=== PATIENT | male | born 1950 | race Caucasian/White ===

== ENCOUNTER 2016-12-07 11:09 | Emergency (ER) | payer MEDICARE, BC ==
[2016-12-07 11:28] VITALS: BP 158/98
--- NOTE | 2016-12-07 12:46 | ERNOTE ---
Upper Extremity HPI - Narrative Date of Service: 12/07/16 - General Extremities Pain Location: arm: right Time Seen by Provider: 12/07/16 12:35 Source: patient, family, RN notes reviewed Exam Limitations: no limitations - Immun/Allergies/Home Medications Immunizations: IMMUNIZATION HX Immunizations Up to Date Yes History of Influenza Vaccine Yes Hx Pneumococcal Vaccination Yes Allergies/Adverse Reactions: Allergies Allergy/AdvReac Type Severity Reaction Status Date / Time tetracycline [Tetracycline] Allergy Severe Unable to Verified 12/07/16 11:28 urinate Home Medications: HOME MEDICATIONS Asmanex 220 mcg PO DAILY 01/04/13 [Last Taken Unknown] Clonazepam 2 mg PO HS 01/04/13 [Last Taken Unknown] Doxazosin Mesylate [Cardura] 8 mg PO DAILY 01/04/13 [Last Taken Unknown] Hydrochlorothiazide [Hydrodiuril] 25 mg PO DAILY 01/04/13 [Last Taken Unknown] Irbesartan [Avapro] 300 mg PO DAILY 01/04/13 [Last Taken Unknown] Cholecalciferol (Vitamin D3) [Vitamin D3] 2,000 unit PO DAILY 10/04/16 [Last Taken Unknown] Omeprazole 40 mg PO DAILY #30 capsule. 10/05/16 [Last Taken Unknown] #103/Iron Fumarate/FA [ Tablet] 1 each PO DAILY #30 tablet 10/05/16 [Last Taken Unknown] Montelukast Sodium [Singulair] 10 mg PO DAILY 12/07/16 [Last Taken Unknown] - History of Present Illness Narrative: Nathan is a 66 year old male ambulatory to the ED for pain in his right arm that began last evening at 1900. The pain begins in his right lateral neck and radiates down the arm. He reports that he has been experiencing this intermittently for the past 2 weeks after staying in a hotel and sleeping on a different pillow. He has not taken anything for pain. He denies any other symptoms. 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 He reports that he became concerned that he might be having a stroke or some serious problem, so he came in to be evaluated. Method of Injury: Reports: no apparent injury Associated Symptoms: Reports: tingling. Denies: weakness, numbness distally, loss of power (rt arm) Prior Treament: Denies: similar symptoms before Review of Systems - Review of Systems Constitutional: Absent: recent illness, fever, chills, malaise EYE: Present: no symptoms reported ENT: Present: no symptoms reported Respiratory: Present: no symptoms reported Cardiology: Absent: chest pain, edema Gastrointestinal/Abdominal: Present: no symptoms reported Genitourinary: Present: no symptoms reported Musculoskeletal: Present: muscle pain, muscle stiffness - , neck pain. Absent : back pain, joint pain, joint swelling Neurological: Present: See HPI Endocrine: Present: no symptoms reported Hematologic/Lymphatic: Present: no symptoms reported Psych: Present: no symptoms reported - Patient's Past Medical History Patient History - Medical: Anxiety, Depression, Kidney stone, Other Patient History - Cardiac/Respiratory: Hypertension Patient History - Cancer: Skin Patient History - Surgical Procedures: Cholecystectomy, Total Knee Replacement, Other - Family History Mother Family History - Medical: Diabetes Type 2, Dementia Family History - Cardiac/Respiratory: Myocardial Infarction, TIA - Social History Living Situations: home Alcohol Use: rarely Drug Use: none Physical Exam - Physical Exam General Appearance: Present: wd/wn, alert, no apparent distress Eye Exam: Normal inspection: bilateral Neck: Present: full range of motion, tender lateral - right. Absent: lymphadenopathy (R), lymphadenopathy (L), tender posterior midline Respiratory: Present: no respiratory distress, normal breath sounds, no accessory muscle use, lungs clear Cardiovascular/Chest: Present: regular rate, rhythm, no murmur Extremity Exam: Present: normal inspection, non-tender, no edema, normal range of motion Neurological Exam: Present: alert, oriented, normal mood/affect, no motor/ sensory deficits Skin Exam: Present: normal color, warm/dry ED Progress - Vital Signs Patient's Vital Signs:: I have reviewed the patient's vital signs. Vital Signs: Vital Signs 12/07/16 11:23 Temperature 35.8 C L Pulse Rate 86 Respiratory 12 Rate Blood Pressure 158/98 O2 Sat by Pulse 96 Oximetry - Progress/Reassessment Chief Complaint: Upper Extremity Injury/Problem Progress:: Unchanged Progress Note-Subjective: Patient reassured that symptoms are not d/t a serious condition. Given his history of arthritis and the symptoms beginning after sleeping on a different pillow, his pain is likely musculoskeletal in nature. Discussed medication for the problem - states he will take Tylenol if needed. Departure Clinical Impression: Neck muscle strain Qualifiers: Encounter type: initial encounter Qualified Code(s): S16.1XXA - Strain of muscle, fascia and tendon at neck level, initial encounter - Departure Disposition: Home self-care Condition: Good Instructions: Cervical Sprain, [id number] Additional Instructions: Tylenol for pain Gently stretching exercises Heat to sore areas Referrals: Marcelo Becker MD [Primary Care Provider] -
== END 2016-12-07 12:59 | disposition home or self-care (01) ==
LOC: ER 11:09
DX: S16.1XXA Strain of muscle, fascia and tendon at neck level, initial encounter (principal); X50.1XXA Overexertion from prolonged static or awkward postures, initial encounter; Y93.84 Activity, sleeping; Y92.59 Other trade areas as the place of occurrence of the external cause; Z87.442 Personal history of urinary calculi; Z85.828 Personal history of other malignant neoplasm of skin; I10 Essential (primary) hypertension; F41.9 Anxiety disorder, unspecified

== ENCOUNTER 2017-03-07 20:28 | Emergency (ER) | payer MEDICARE, BC ==
[2017-03-07 20:44] VITALS: BP 162/95
[2017-03-07] MEDS ORDERED: NEOMY SULF/POLYMYX B SULF/HC 100 DROP BTL EACH EAR ONE (21:11)
--- NOTE | 2017-03-07 21:15 | ERNOTE ---
[facility] Date of Service: 03/07/17 Presenting Symptoms: other - Ear pain Time Seen by Provider: 03/07/17 20:55 Source: patient, family, RN notes reviewed Exam Limitations: no limitations - Immun/Allergies/Home Medications Immunizations: IMMUNIZATION HX Immunizations Up to Date Yes History of Influenza Vaccine Yes Hx Pneumococcal Vaccination Yes Allergies/Adverse Reactions: Allergies Allergy/AdvReac Type Severity Reaction Status Date / Time tetracycline [Tetracycline] Allergy Severe Unable to Verified 12/07/16 11:28 urinate Home Medications: HOME MEDICATIONS Asmanex 220 mcg PO DAILY 01/04/13 [Last Taken Unknown] Clonazepam 2 mg PO HS 01/04/13 [Last Taken Unknown] Doxazosin Mesylate [Cardura] 8 mg PO DAILY 01/04/13 [Last Taken Unknown] Hydrochlorothiazide [Hydrodiuril] 25 mg PO DAILY 01/04/13 [Last Taken Unknown] Irbesartan [Avapro] 300 mg PO DAILY 01/04/13 [Last Taken Unknown] Cholecalciferol (Vitamin D3) [Vitamin D3] 2,000 unit PO DAILY 10/04/16 [Last Taken Unknown] - History of Present Illness Narrative: 66 year old male ambulatory to the ED with his for bilateral ear pain that began a few days ago. The pain in the left ear became much worse today. He is having decreased hearing on the left, occasional dizziness and mild nausea. He reports having a similar problem a few years ago. ENT Location: Present: ear (L) Prearrival Treatment: Present: over the counter meds Associated Symptoms - ENT: Reports: change in hearing. Denies: fever, malaise, poor fluid intake, poor solid intake, cough, sore throat, nasal congestion/ drainage, facial pain/swelling, ear drainage, foreign body, trauma Prior Treament: Reports: similar symptoms before Review of Systems - Review of Systems Constitutional: Absent: fever, chills EYE: Present: no symptoms reported ENT: Present: ear pain. Absent: ear discharge, nose congestion, sore throat Respiratory: Present: no symptoms reported Cardiology: Present: no symptoms reported Gastrointestinal/Abdominal: Present: nausea. Absent: vomiting, abdominal pain Genitourinary: Present: no symptoms reported Musculoskeletal: Absent: muscle stiffness, neck pain Skin: Absent: rash, lesions, lumps Neurological: Present: dizziness/light-headedness. Absent: headache Endocrine: Present: no symptoms reported Hematologic/Lymphatic: Present: no symptoms reported Psych: Present: no symptoms reported - Patient's Past Medical History Patient History - Medical: Anemia, Anxiety, Depression, Kidney stone, Other Patient History - Cardiac/Respiratory: No pertinent hx, Hypertension Patient History - Cancer: Skin Patient History - Surgical Procedures: Cholecystectomy, Total Knee Replacement, Other Patient History - Other: None - Family History Mother Family History - Medical: Diabetes Type 2, Dementia Family History - Cardiac/Respiratory: Myocardial Infarction, TIA - Social History Living Situations: spouse Abuse History: No History of abuse Psych History: Hx of Anxiety, Hx of Depression Smoking Status: Never smoker Alcohol Use: rarely Drug Use: none - Immunizations Immunizations Up to Date: Yes Hx Pneumococcal Vaccination: Yes History of Influenza Vaccine: Yes Physical Exam - Physical Exam General Appearance: Present: wd/wn, alert, other - appears mildly uncomfortable Eye Exam: Normal inspection: bilateral Ears, Nose, Throat: Present: hearing decreased, normal pharynx, other - external auditory canal inflammation and tenderness bilaterally but much worse on left, unable to visualize left TM d/t edema with near closure of ear canal. Absent: abnormal TM (R), sinus pain/drainage Neck: Present: supple, lymphadenopathy (R), lymphadenopathy (L) - mildly tender Respiratory: Present: no respiratory distress, normal breath sounds, no accessory muscle use, lungs clear Cardiovascular/Chest: Present: regular rate, rhythm, no murmur Neurological Exam: Present: alert, oriented, normal mood/affect, other - gait somewhat unsteady d/t lightheadedness Skin Exam: Present: normal color, warm/dry ED Progress - Vital Signs Patient's Vital Signs:: I have reviewed the patient's vital signs. Vital Signs: Vital Signs 03/07/17 20:38 Temperature 37.0 C Pulse Rate 102 H Respiratory 16 Rate Blood Pressure 162/95 O2 Sat by Pulse 99 Oximetry - Progress/Reassessment Chief Complaint: Earache Progress:: Improved Plan - Plan Plan: Wick placed in left ear, cortisporin drops given in both ears, has f/u with PCP the day after tomorrow. Departure Clinical Impression: Otitis externa of both ears Qualifiers: Otitis externa type: unspecified type Chronicity: acute Qualified Code(s): H60.503 - Unspecified acute noninfective otitis externa, bilateral - Departure Disposition: Home Follow Up Needed Condition: Good Instructions: Otitis Externa, [id number] Additional Instructions: Use ear drops as directed - 4 drops in each ear 4 times a day for 10 days Recheck with your doctor in 2 days Referrals: Marcelo Becker MD [Primary Care Provider] -
[2017-03-07] MEDS ORDERED: NEOMY SULF/POLYMYX B SULF/HC 100 DROP BTL ONE (21:16)
--- OUTSIDE RECORDS SUMMARY | 2017-03-07 21:17 | XMS REPORT | Continuity of Care Document ---
:1950 Author Organization [facility] ([facility]) Address [address] [place] [address] Phone [phone] Care Team Providers Name Role Phone Unavailable Primary Care Provider Unavailable Source Comments This disclosure is being made pursuant to the Care Everywhere program, applicable federal and state laws, and may not contain all informaitonavailable regarding this patient.[facility] ([facility]) Active Allergies and Adverse Reactions Allergen Noted Date Severity Reactions Comments Tetracycline Urticaria (Hives) Current Medications Not on file Active Problems Not on file Social History Tobacco Use Types Packs/Day Years Used Date Never Assessed Last Filed Vital Signs Vital Sign Reading Time Taken Blood Pressure - - Pulse - - Temperature - - Respiratory Rate - - Height 1.72 m (5' 7.71") 09/18/2001 8:21 AM [employer] Weight 107.099 kg (236 lb 1.8 oz) 09/18/2001 8:21 AM FR[employer] Body Mass Index 36.2 09/18/2001 8:21 AM FR[employer]UFFER Oxygen Saturation - - Plan of Care Health Maintenance Due Date Last Done Comments HCV Screening 1950 Hepatitis B Vaccine (1 of 3 - Primary Series) 1950 Tdap Vaccine 1963 Lipid Disorder Screening 1970 Td Vaccine 1970 Colonoscopy 2002 Prostate Cancer Screening 2002 Zoster Vaccine 2012 Influenza Vaccine: Seasonal (#1) 06/13/2016 Results from Last 3 Months Not on file
== END 2017-03-07 21:30 | disposition home or self-care (01) ==
LOC: ER 20:28
DX: H60.503 Unspecified acute noninfective otitis externa, bilateral (principal)

== ENCOUNTER 2017-07-13 22:08 | Observation (INO) | payer MEDICARE, BC ==
[2017-07-13 23:19] LABS: Hematocrit 42.9 % (42.0-52.0); Hemoglobin 14.7 gm/dL (13.5-18.0); Mean Cell Volume 90.5 fl (78-100); Mean Corpuscular Hgb Conc 34.3 g/dl (32-36); Mean Platelet Volume 10.1 fl (6.0-9.5); Neutrophil # 6.1 K/mm3 (1.3-6.0); Neutrophil % 63.9 % (42-75.0); Platelet Count 188 K/mm3 (150-450); Red Blood Count 4.74 M/mm3 (4.7-6.0); Red Cell Distribution Width 12.9 % (11.5-14.0); White Blood Count 9.5 K/mm3 (4.0-10.5)
--- NOTE | 2017-07-13 23:19 | ERNOTE ---
Lower Extremity HPI - General Lower Extremities Pain: leg: right, thigh: right - pain and swelling Time Seen by Provider: 07/13/17 22:54 Source: patient, family Exam Limitations: no limitations - Immun/Allergies/Home Medications Immunizations: IMMUNIZATION HX Immunizations Up to Date Yes History of Influenza Vaccine Yes Hx Pneumococcal Vaccination Yes Allergies/Adverse Reactions: Allergies Allergy/AdvReac Type Severity Reaction Status Date / Time tetracycline [Tetracycline] Allergy Severe Unable to Verified 12/07/16 11:28 urinate Home Medications: HOME MEDICATIONS Asmanex 220 mcg PO DAILY 01/04/13 [Last Taken Unknown] Clonazepam 2 mg PO HS 01/04/13 [Last Taken Unknown] Doxazosin Mesylate [Cardura] 8 mg PO DAILY 01/04/13 [Last Taken Unknown] Hydrochlorothiazide [Hydrodiuril] 25 mg PO DAILY 01/04/13 [Last Taken Unknown] Irbesartan [Avapro] 300 mg PO DAILY 01/04/13 [Last Taken Unknown] Cholecalciferol (Vitamin D3) [Vitamin D3] 2,000 unit PO DAILY 10/04/16 [Last Taken Unknown] Cyclobenzaprine HCl 10 mg PO HS 07/13/17 [Last Taken Unknown] - History of Present Illness Narrative: Pt reports right thigh pain yesterday and lower leg swelling and pain today. also states that he has had difficulty walking, using a walker that he usually doesn't need. He also had some nausea and fever at home (subjective) and his is concerned that he may have [place] infection [place] Occurred: yesterday Location of Incident: home Method of Injury: Reports: unknown Loss of Consciousness: Reports: no loss of consciousness Associated Symptoms: Reports: headache - mild Other Injuries: Reports: none Review of Systems - Review of Systems Constitutional: Present: fever, chills EYE: Present: no symptoms reported ENT: Present: no symptoms reported Respiratory: Absent: shortness of breath Cardiology: Absent: chest pain Gastrointestinal/Abdominal: Present: nausea. Absent: vomiting, abdominal pain Genitourinary: Present: no symptoms reported Musculoskeletal: Present: See HPI Skin: Absent: rash, change in color Neurological: Present: weakness, tremors - increased over his usual tremors. Absent: numbness, tingling Endocrine: Present: no symptoms reported Hematologic/Lymphatic: Present: no symptoms reported Psych: Present: no symptoms reported - Patient's Past Medical History Patient History - Medical: Anxiety, Depression, Kidney stone Patient History - Cardiac/Respiratory: Hypertension Patient History - Cancer: No Hx of Cancer Patient History - Surgical Procedures: Cholecystectomy, Orthopedic Patient History - Other: None - Family History Mother Family History - Medical: Diabetes Type 2, Dementia Family History - Cardiac/Respiratory: Myocardial Infarction, TIA - Social History Living Situations: spouse Abuse History: No History of abuse Psych History: No pertinent hx, Hx of Depression Smoking Status: Former smoker Have you smoked in the past 12 months: No Do you dip or chew tobacco: No Alcohol Use: rarely Drug Use: none - Immunizations Immunizations Up to Date: Yes Hx Pneumococcal Vaccination: Yes History of Influenza Vaccine: Yes Physical Exam - Physical Exam General Appearance: Present: wd/wn, alert, no apparent distress Head Exam: Present: normal inspection, no evidence of injury Neck: Present: normal inspection, nontender Respiratory: Present: no respiratory distress, no accessory muscle use Peripheral Pulses: N=norm/S=strong/W=weak/B=bound/A=absent: Dorsalis-pedis (R): Normal, Dorsalis-pedis (L): Normal Back Exam: Present: normal inspection, no CVA tenderness Extremity Exam: Present: pedal edema, calf tenderness, extremity edema - right leg 1+ Neurological Exam: Present: alert, oriented, normal mood/affect, no motor/ sensory deficits Skin Exam: Present: normal color, warm/dry Lymphatic Exam: Present: no adenopathy ED Progress - Results and Orders Patient's Lab Results:: I have reviewed the patient's lab results. Results and Orders: Laboratory Tests 07/13/17 07/13/17 07/13/17 23:07 23:07 23:07 WBC 9.5 Hgb 14.7 Hct 42.9 Plt Count 188 D-Dimer 4.64 H Sodium 141 Potassium 3.7 Chloride 102 Carbon Dioxide 31.4 Anion Gap 11.3 BUN 18 Creatinine 1.16 Random Glucose 116 H Calcium 9.7 Total Bilirubin 1.1 AST 11 ALT 22 Alkaline Phosphatase 87 Total Protein 7.3 Albumin 3.3 L - Vital Signs Patient's Vital Signs:: I have reviewed the patient's vital signs. Vital Signs: Vital Signs 07/13/17 22:18 Temperature 36.8 C Pulse Rate 104 H Respiratory 18 Rate Blood Pressure 155/96 O2 Sat by Pulse 96 Oximetry - CT/Ultrasound CT/Ultrasound Narrative: U/S RLE venous doppler: obstructing thrombus from midportion of the superficial femoral vein through the poplitial region into the posterior tibial vein. - Progress/Reassessment Chief Complaint: Lower Extremity Pain/ Injury Progress Note-Subjective: 07/14/17 01:03 Spoke with Renetta NICOLEP hospitalist she agrees with lovenox and admission. Departure Clinical Impression: DVT, lower extremity Qualifiers: Affected thrombotic vein of extremity: femoral Chronicity: acute Laterality: right Qualified Code(s): I82.411 - Acute embolism and thrombosis of right femoral vein - Departure Disposition: [facility] Condition: Stable
[2017-07-13 23:35] LABS: Albumin * 3.3 gm/dl (3.4-5.0); Anion Gap 11.3 mmol/L (6.8-13.8); BUN/Creatinine Ratio 15.5 (9.0-21.6); Bilirubin, Total 1.1 mg/dL (0.0-1.1); Ca. Corrected For Albumin 9.9 mg/dL (8.4-10.2); Calcium * 9.7 mg/dL (7.9-10.9); Carbon Dioxide 31.4 mmol/L (24-32.6); Potassium 3.7 mmol/L (3.4-4.6); Total Protein 7.3 gm/dL (6.2-8.2)
[2017-07-14] MEDS ORDERED: ENOXAPARIN SODIUM 100 MG/ML SYRG SC ONE ×2 (00:53→00:55)
--- NOTE | 2017-07-14 04:24 | HP ---
Chief Complaint - Chief Complaint Date of Service: 07/14/17 Time of Service: 04:23 Chief Complaint: Right calf pain History of Present Illness: 67 years old male adm to the hospital from ER with reports of right calf pain. 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 Associated s/s nausea, headache and fever. He denies shortness of breath, palpitation and chest pain. Last night the pain in right leg was unbearable so he came to the ER. Venous duplex :positive for DVT right femoral vein, initiated on Lovenox and consider bridging with Coumadin.PMH significant for BPH, urethral stricture, anxiety, depression, hypertension, and cerebral palsy. Plan of care discussed with pt and they verbalized understanding and agrees. - Patient's Past Medical History Patient History - Medical: Anxiety, Depression, Kidney stone, Other - cerebral palsy Patient History - Cardiac/Respiratory: Hypertension Patient History - Cancer: No Hx of Cancer Patient History - Surgical Procedures: Cholecystectomy, Other - Rotator cuff repair Patient History - Other: None - Family History Mother Family History - Medical: Diabetes Type 2, Dementia Family History - Cardiac/Respiratory: Myocardial Infarction, TIA - Social History Living Situations: spouse Abuse History: No History of abuse Psych History: No pertinent hx, Hx of Depression Smoking Status: Former smoker Have you smoked in the past 12 months: No Do you dip or chew tobacco: No Alcohol Use: rarely Drug Use: none - Immunizations Immunizations Up to Date: Yes Hx Pneumococcal Vaccination: Yes History of Influenza Vaccine: Yes Review Of Systems (GEN) - Review of Systems Generalized/Overall Review: Present: No Symptoms Reported EENTM: Present: Other - slur from cerebral palsy Respiratory: Present: No Symptoms Reported Abdominal: Present: No Symptoms Reported Genitourinary: Present: No Symptoms Reported Musculoskeletal: Present: Other - calf pain Neurological: Present: No Symptoms Reported Skin: Present: No Symptoms Reported Endocrine: Present: No Symptoms Reported Immunizations: IMMUNIZATION HX Immunizations Up to Date Yes History of Influenza Vaccine Yes Hx Pneumococcal Vaccination Yes Allergies/Adverse Reactions: Allergies Allergy/AdvReac Type Severity Reaction Status Date / Time tetracycline [Tetracycline] Allergy Severe Unable to Verified 12/07/16 11:28 urinate Home Medications: HOME MEDICATIONS Asmanex 220 mcg PO DAILY 01/04/13 [Last Taken Unknown] Clonazepam 3 mg PO HS 01/04/13 [Last Taken Unknown] Doxazosin Mesylate [Cardura] 8 mg PO HS 01/04/13 [Last Taken Unknown] Hydrochlorothiazide [Hydrodiuril] 25 mg PO DAILY 01/04/13 [Last Taken Unknown] Irbesartan [Avapro] 300 mg PO DAILY 01/04/13 [Last Taken Unknown] Cholecalciferol (Vitamin D3) [Vitamin D3] 10,000 unit PO DAILY 10/04/16 [Last Taken Unknown] Cyclobenzaprine HCl 10 mg PO HS 07/13/17 [Last Taken Unknown] Exam - Exam Vital Signs: Vital Signs - Last Taken Temp 36.9 C 07/14/17 02:50 Pulse 103 H 07/14/17 03:31 Resp 22 H 07/14/17 02:50 BP 141/89 07/14/17 02:50 Pulse Ox 94 07/14/17 02:50 Constitutional: Present: Alert, Oriented x3, Cooperative, No distress, Middle aged ENT Exam: Present: normal ENT inspection Eye Exam: bilateral eye: normal inspection Neck: Present: full range of motion Back Exam: Present: normal inspection Breasts: Present: Exam deferred Respiratory: Present: chest non-tender, lungs clear, normal breath sounds Cardiovascular/Chest: Present: normal peripheral pulses, regular rate, rhythm, no chest tenderness Peripheral Pulses: dorsalis-pedis (R): 3+, dorsalis-pedis (L): 3+ Abdomen: Present: Normal bowel sounds, soft, nontender, nondistended, no rebound tenderness /Rectal: Present: Exam deferred Extremity: Present: no pedal edema, normal capillary refill, calf tenderness - + homans sign Skin Exam: Present: normal color, warm/dry, no cyanosis Lymphatic: Present: no adenopathy Neurologic: Present: oriented x 3 Appearance: Present: appropriate appearance Eye contact: Present: cooperative, good eye contact Thoughts: Present: normal thought pattern Diagnostic Studies: Laboratory Results WBC 9.5 K/mm3 (4.0-10.5) 07/13/17 23:07 RBC 4.74 M/mm3 (4.7-6.0) 07/13/17 23:07 Hgb 14.7 gm/dL (13.5-18.0) 07/13/17 23:07 Hct 42.9 % (42.0-52.0) 07/13/17 23:07 MCV 90.5 fl (78-100) 07/13/17 23:07 MCH 31.0 pg (27-31) 07/13/17 23:07 MCHC 34.3 g/dl (32-36) 07/13/17 23:07 RDW 12.9 % (11.5-14.0) 07/13/17 23:07 Plt Count 188 K/mm3 (150-450) 07/13/17 23:07 MPV 10.1 fl (6.0-9.5) H 07/13/17 23:07 Immature Gran % (Auto) 0.60 % (0.001-0.429) H 07/13/17 23:07 Immature Gran # (Auto) 0.06 K/mm3 (0.000-0.0310) H 07/13/17 23:07 Neutrophils % 63.9 % (42-75.0) 07/13/17 23:07 Lymphocytes % 17.0 % (20-51) L 07/13/17 23:07 Monocytes % 11.6 % (0.0-9) H 07/13/17 23:07 Eosinophils % 6.1 % (0.0-3.0) H 07/13/17 23:07 Basophils % 0.8 % (0.0-1.0) 07/13/17 23:07 Nucleated RBC % 0.0 k/mm3 (0-1) 07/13/17 23:07 Neutrophils # 6.1 K/mm3 (1.3-6.0) H 07/13/17 23:07 Lymphocytes # 1.6 k/mm3 (1.5-3.5) 07/13/17 23:07 Monocytes # 1.1 k/mm3 (0.0-1.0) H 07/13/17 23:07 Eosinophils # 0.6 k/mm3 (0.0-0.7) 07/13/17 23:07 Absolute Basophils 0.1 k/mm3 (0.0-0.1) 07/13/17 23:07 D-Dimer 4.64 mg/L (0.19-0.49) H 07/13/17 23:07 Sodium 141 mmol/L (132-142) 07/13/17 23:07 Plasma Sodium 141 mmol/L (130-142) 07/13/17 23:07 Potassium 3.7 mmol/L (3.4-4.6) 07/13/17 23:07 Chloride 102 mmol/L (97-106) 07/13/17 23:07 Carbon Dioxide 31.4 mmol/L (24-32.6) 07/13/17 23:07 Anion Gap 11.3 mmol/L (6.8-13.8) 07/13/17 23:07 BUN 18 mg/dL (6-23) 07/13/17 23:07 Creatinine 1.16 mg/dL (0.4-1.4) 07/13/17 23:07 Est GFR (Non-Af Amer) 67 mL/min (60-130) 07/13/17 23:07 BUN/Creatinine Ratio 15.5 (9.0-21.6) 07/13/17 23:07 Random Glucose 116 mg/dL (70-110) H 07/13/17 23:07 Calcium 9.7 mg/dL (7.9-10.9) 07/13/17 23:07 Calcium Adj for Albumin 9.9 mg/dL (8.4-10.2) 07/13/17 23:07 Total Bilirubin 1.1 mg/dL (0.0-1.1) 07/13/17 23:07 AST 11 U/L (0-48) 07/13/17 23:07 ALT 22 U/L (19-67) 07/13/17 23:07 Alkaline Phosphatase 87 U/L (50-170) 07/13/17 23:07 Total Protein 7.3 gm/dL (6.2-8.2) 07/13/17 23:07 Albumin 3.3 gm/dl (3.4-5.0) L 07/13/17 23:07 Assessment/Plan - Narrative Narrative: DVT- Right femoral vein On adm D- Dimer 4.64 Venous duplex + DVT femoral vein Lovenox 100mg x1 given in ER, continue Lovenox and bride with Coumadin Hypertension Monitor BP Q shift and PRN May resume home dose of medications. Anxiety- stable may resume home medications chronic Cerebral palsy- stable Code status: full GI ppx: pepcid Dvt ppx: On therapeutic dose Lovenox Time 35 minutes - Assessment/Plan (1) DVT, lower extremity Problem: Acute Qualifiers: Affected thrombotic vein of extremity: femoral Chronicity: acute Laterality: right Qualified Code(s): I82.411 - Acute embolism and thrombosis of right femoral vein (2) Hypertension Problem: Chronic Qualifiers: Hypertension type: essential hypertension Qualified Code(s): I10 - Essential (primary) hypertension (3) Cerebral palsy Problem: Chronic
[2017-07-14] MEDS ORDERED: ENOXAPARIN SODIUM 100 MG/ML SYRG SC SCH ×2 (05:45→13:00)
--- NOTE | 2017-07-14 06:57 | DS ---
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 admitted for occlusive DVT of right LE, with tx with lovenox at 1mg/kg dose q12 and also started on pradaxa 150mg po bid to lessen trips he would have to make to hospital for testing and because of difficulties he might have maintaining therapeutic ranges on coumadin. He states his calf pain was better this am, a few hrs after receiving his first lovenox injection and continued to deny CP/SOB. Procedures Performed: none Discharge Disposition: Home self care Disposition: Home self-care Condition: Stable Discharge Activity: Activity as tolerated Discharge Diet: General/regular food Referrals: Marcelo Becker MD [Primary Care Provider] - One Week Prescriptions (Any new or edited meds): Dabigatran Etexilate Mesylate [Pradaxa] 150 mg PO BID #60 capsule Complete Home Medications List: Complete Home Medication List: Asmanex 220 mcg PO DAILY 01/04/13 Clonazepam 3 mg PO HS 01/04/13 Doxazosin Mesylate [Cardura] 8 mg PO HS 01/04/13 Hydrochlorothiazide [Hydrodiuril] 25 mg PO DAILY 01/04/13 Irbesartan [Avapro] 300 mg PO DAILY 01/04/13 Cholecalciferol (Vitamin D3) [Vitamin D3] 10,000 unit PO DAILY 10/04/16 Cyclobenzaprine HCl 10 mg PO HS 07/13/17 Dabigatran Etexilate Mesylate [Pradaxa] 150 mg PO BID #60 capsule 07/14/17
[2017-07-14] MEDS ORDERED: BUDESONIDE 0.5 MG/2 ML VIAL.NEB IH SCH (07:00)
[2017-07-14] MEDS ORDERED: DABIGATRAN ETEXILATE MESYLATE 150 MG CAPSULE PO SCH (07:00)
[2017-07-14] MEDS ORDERED: ACETAMINOPHEN 500 MG TABLET PO PRN (07:05)
[2017-07-14] MEDS ORDERED: LOSARTAN POTASSIUM 50 MG TABLET PO SCH (09:00)
[2017-07-14] MEDS ORDERED: CHOLECALCIFEROL 5,000 UNIT TABLET PO SCH (09:00)
[2017-07-14] MEDS ORDERED: HYDROCHLOROTHIAZIDE 25 MG TABLET PO SCH (09:00)
[2017-07-14 11:54] VITALS: BP 137/96
[2017-07-14] MEDS ORDERED: clonazePAM 1 MG TABLET PO SCH (21:00)
[2017-07-14] MEDS ORDERED: DOXAZOSIN MESYLATE 2 MG TABLET PO SCH (21:00)
[2017-07-14] MEDS ORDERED: CYCLOBENZAPRINE HCL 10 MG TABLET PO SCH (21:00)
== END 2017-07-14 14:23 | disposition home or self-care (01) ==
LOC: ER 22:08 → MS 07-14 01:08 → INTOOBSV 07-14 01:08 → UNDOADMOB 07-14 01:08 → MS 07-14 06:49
PROVIDERS: ADMIT Nurse Practitioner; ATTEND Family Medicine
DX: I82.411 Acute embolism and thrombosis of right femoral vein (principal); I10 Essential (primary) hypertension; G80.9 Cerebral palsy, unspecified; F41.9 Anxiety disorder, unspecified; Z87.891 Personal history of nicotine dependence; N40.0 Benign prostatic hyperplasia without lower urinary tract symptoms
CPT/HCPCS: 36415; 80053; 85025; 85379; 93971; 94640; 96372; 99285; G0378

== ENCOUNTER 2017-07-14 21:57 | Emergency (ER) | payer MEDICARE, BC ==
[2017-07-14 22:04] VITALS: BP 154/95
--- NOTE | 2017-07-14 22:27 | ERNOTE ---
Lower Extremity HPI - Narrative Date of Service: 07/14/17 - General Time Seen by Provider: 07/14/17 22:08 Source: patient - Immun/Allergies/Home Medications Immunizations: IMMUNIZATION HX Immunizations Up to Date Yes History of Influenza Vaccine Yes Hx Pneumococcal Vaccination No Allergies/Adverse Reactions: Allergies Allergy/AdvReac Type Severity Reaction Status Date / Time tetracycline [Tetracycline] Allergy Severe Unable to Verified 12/07/16 11:28 urinate Home Medications: HOME MEDICATIONS Asmanex 220 mcg PO DAILY 01/04/13 [Last Taken Unknown] Clonazepam 3 mg PO HS 01/04/13 [Last Taken Unknown] Doxazosin Mesylate [Cardura] 8 mg PO HS 01/04/13 [Last Taken Unknown] Hydrochlorothiazide [Hydrodiuril] 25 mg PO DAILY 01/04/13 [Last Taken Unknown] Irbesartan [Avapro] 300 mg PO DAILY 01/04/13 [Last Taken Unknown] Cholecalciferol (Vitamin D3) [Vitamin D3] 10,000 unit PO DAILY 10/04/16 [Last Taken Unknown] Cyclobenzaprine HCl 10 mg PO HS 07/13/17 [Last Taken Unknown] Dabigatran Etexilate Mesylate [Pradaxa] 150 mg PO BID #60 capsule 07/14/17 [ Last Taken Unknown] Enoxaparin Sodium [Lovenox] 100 mg SC BID #10 disp.syrin 07/14/17 [Last Taken Unknown] - History of Present Illness Narrative: This is a 67-year-old gentleman who comes to the emergency department complaining of a mild catch in his right side. The patient is very concerned because he was diagnosed with a blood clot in his right leg earlier today. The patient was given a list of instructions and things to watch out for, and thought that the doctor said if he develops pain in his side that may indicate the blood clot is moving. The patient has had no chest pain and no shortness of breath. His leg which was significantly swollen previously has gotten much better. The patient says that he has had the pain in his side for just a couple of hours. He's had no nausea or vomiting. He has had no other complaints. He is not feeling dizzy or lightheaded. His blood pressures actually been a little higher than usual. His sons had lots of questions about why his blood pressure was elevated if he is on a blood thinner. Review of Systems - Review of Systems Constitutional: Present: no symptoms reported EYE: Present: no symptoms reported ENT: Present: no symptoms reported Respiratory: Present: no symptoms reported Cardiology: Present: no symptoms reported Gastrointestinal/Abdominal: Present: no symptoms reported Genitourinary: Present: no symptoms reported Musculoskeletal: Present: other - pain on the right flank superficially. Skin: Present: no symptoms reported Neurological: Present: no symptoms reported Endocrine: Present: no symptoms reported Hematologic/Lymphatic: Present: no symptoms reported Psych: Present: no symptoms reported All Other Systems: All systems neg except as marked - Patient's Past Medical History Patient History - Medical: Anxiety, Depression, Kidney stone, Other Patient History - Cardiac/Respiratory: Hypertension Patient History - Cancer: No Hx of Cancer Patient History - Surgical Procedures: Cholecystectomy, Other Patient History - Other: None - Family History Mother Family History - Medical: Diabetes Type 2, Dementia Family History - Cardiac/Respiratory: Myocardial Infarction, TIA - Social History Living Situations: home Abuse History: No History of abuse Psych History: Hx of Anxiety, Hx of Depression Smoking Status: Former smoker Have you smoked in the past 12 months: No Do you dip or chew tobacco: No Alcohol Use: rarely Drug Use: none - Immunizations Immunizations Up to Date: Yes Hx Pneumococcal Vaccination: No History of Influenza Vaccine: Yes Physical Exam - Physical Exam General Appearance: Present: wd/wn, alert, no apparent distress Head Exam: Present: normal inspection, no evidence of injury Ears, Nose, Throat: Present: normal ENT inspection, normal pharynx Neck: Present: normal inspection, nontender Respiratory: Present: no respiratory distress, normal breath sounds, no accessory muscle use, chest nontender, lungs clear Cardiovascular/Chest: Present: regular rate, rhythm, no murmur, normal peripheral pulses Gastrointestinal/Abdominal: Present: normal bowel sounds, nontender, nondistended, soft, other - patient has some very mild discomfort with palpation in the left lower quadrant and right lower quadrant more in the flanks. These actually corresponded where the patient received shots earlier today. Back Exam: Present: normal inspection, normal range of motion, no CVA tenderness , no vertebral tenderness Extremity Exam: Present: normal inspection, non-tender, normal range of motion, no edema Neurological Exam: Present: alert, oriented, normal mood/affect, no motor/ sensory deficits Skin Exam: Present: normal color, warm/dry Lymphatic Exam: Present: no adenopathy ED Progress - Vital Signs Patient's Vital Signs:: I have reviewed the patient's vital signs. Vital Signs: Vital Signs 07/14/17 21:59 Temperature 37.1 C Pulse Rate 98 Respiratory 18 Rate Blood Pressure 154/95 O2 Sat by Pulse 94 Oximetry - Progress/Reassessment Chief Complaint: Lower Extremity Pain/ Injury Plan - Plan Plan: This is a 67-year-old gentleman who is concerned that the blood clot he had in his leg may have moved. His symptoms have actually improved. The leg swelling is much better. He is already being treated with anticoagulants. As we have gone through his assessment here in the department, his remembered that he received a shot near the area where is having the pain in his side. He also has a small amount of pain in the other side where he also received a shot earlier. The patient is very happy that we have answered his questions about blood pressure and being on blood thinners. I do not believe that this gentleman would benefit from any further testing. Certainly one would not expect a blood clot to move into his flank and cause pain in his flank. He has no nausea vomiting diarrhea blood in his stool dizziness hypotension or anything to make me think of a GI bleed. He does not have significant abdominal discomfort to make me think of a hematoma. He only has tenderness and a very small area of the flank. This is not on the entire flank such as would be expected with a retroperitoneal hematoma. The patient is comfortable going home now that he has been reassured that his blood clot has not moved. Departure Clinical Impression: Side pain - Departure Disposition: Home self-care Condition: Stable Additional Instructions: As we discussed, the primary symptoms to be concerned about with a blood clot in her leg are symptoms of chest pain and shortness of breath. If either of these occur it may indicate that a blood clot has broken off and that he should return immediately to the emergency department. Her leg is gotten much better over the last 24 hours. I do not think that additional testing is indicated at this time. Next Continue to engage in the treatments that you have been. Continue taking the medicines like you have been. Call your family doctor and set up a follow-up appointment. If you have questions feel free to call the emergency department. We can answer general questions but cannot tell you if you need to come into the emergency room or not. Certainly could develop new worrisome symptoms or return to the emergency department. Referrals: Marcelo Becker MD [Primary Care Provider] -
== END 2017-07-14 22:28 | disposition home or self-care (01) ==
LOC: ER 21:57
DX: R10.9 Unspecified abdominal pain (principal); Z87.442 Personal history of urinary calculi; Z87.891 Personal history of nicotine dependence; I10 Essential (primary) hypertension; Z79.01 Long term (current) use of anticoagulants; F41.9 Anxiety disorder, unspecified

== ENCOUNTER 2019-09-17 17:14 | Observation (INO) ==
[2019-09-17 18:41] LABS: Mean Cell Volume 98.7 fl (78-100); Mean Corpuscular Hemoglobin 32.9 pg (27-31); Mean Corpuscular Hgb Conc 33.3 g/dl (32-36); Mean Platelet Volume 8.6 fl (8-11.3); Platelet Count 135 K/mm3 (150-450); Red Blood Count 3.95 M/mm3 (4.7-6.0); Red Cell Distribution Width 14.9 % (11.5-14.0); White Blood Count 10.6 K/mm3 (4.0-10.5)
[2019-09-17 18:44] LABS: Total Cells Counted 100
[2019-09-17 18:51] LABS: ALT 25 U/L (19-67); AST 14 U/L (0-48); Albumin * 2.6 gm/dl (3.4-5.0); Alkaline Phosphatase * 44 U/L (50-170); Anion Gap 7.2 mmol/L (6.8-13.8); BUN/Creatinine Ratio 23.2 (9.0-21.6); Bilirubin, Total 0.4 mg/dL (0.0-1.1); Blood Urea Nitrogen 52 mg/dL (6-23); Ca. Corrected For Albumin 9.7 mg/dL (8.4-10.2); Calcium * 8.9 mg/dL (7.9-10.9); Chloride 102 mmol/L (97-106); Glucose * 117 mg/dL (70-110); Potassium 4.2 mmol/L (3.4-4.6); Sodium 136 mmol/L (132-142); Total Protein 5.4 gm/dL (6.2-8.2)
[2019-09-17 18:55] LABS: Lymphocyte 15 % (20-51); Monocyte 10 % (0-9); Neutrophil 75 % (42-75); Platelet Estimate Normal (NORMAL); RBC Morphology Normal (NORMAL)
--- NOTE | 2019-09-17 18:58 | ERNOTE ---
<Ousmane Montgomeryen - Last Filed: 09/17/19 19:30> Medical Problem HPI - Narrative Date of Service: 09/17/19 - General Chief Complaint: General Assessment Time Seen by Provider: 09/17/19 18:16 Source: patient, family Exam Limitations: no limitations - Immun/Allergies/Home Medications Immunizations: IMMUNIZATION HX Immunizations Up to Date Yes History of Influenza Vaccine No Hx Pneumococcal Vaccination Yes Allergies/Adverse Reactions: Allergies tetracycline [Tetracycline] Allergy (Severe, Verified 09/17/19 17:25) Unable to urinate sucralfate [From Carafate] Adverse Reaction (Verified 09/17/19 17:25) stomach troubles Home Medications: HOME MEDICATIONS Cholecalciferol (Vitamin D3) [Vitamin D3] 10,000 unit PO DAILY 10/04/16 [Last Taken Unknown] Albuterol Sulfate [Ventolin HFA] 1 puff IH Q4H 11/29/17 [Last Taken Unknown] acetaminophen 325 mg tablet 650 mg PO Q6H PRN tab 05/21/18 [Last Taken Unknown] albuterol sulfate 1.25 mg IH QID PRN 05/21/18 [Last Taken Unknown] irbesartan 300 mg tablet 300 mg PO DAILY #90 tab 12/11/18 [Last Taken Unknown] doxazosin 8 mg tablet 8 mg PO HS #90 tab 03/11/19 [Last Taken Unknown] clonazepam 1 mg tablet 1 mg PO Q8H #90 tab 06/24/19 [Last Taken Unknown] apixaban 5 mg tablet See Rx Instructions .ROUTE .COMPLEX #60 tab 07/04/19 [Last Taken Unknown] gabapentin 600 mg tablet 600 mg PO .COMPLEX #120 tab 07/04/19 [Last Taken Unknown] dexamethasone 6 mg tablet 6 mg PO BID #60 tab 07/24/19 [Last Taken Unknown] pantoprazole 40 mg tablet,delayed release See Rx Instructions .ROUTE .COMPLEX #90 tablet 08/06/19 [Last Taken Unknown] hydrochlorothiazide 25 mg tablet 25 mg PO DAILY #30 tab 08/15/19 [Last Taken Unknown] - History of Present History Narrative: Patient presents to the ED after being told to present for evaluation by [facility] and PCP. He was seen at [place] recently and Dx with MS. He had area right arm and left leg that was thought to be possible MRSA. Given ABx and those finished but no improvement. Pictures were sent to PCP of this and he was sent tot he ED for labs and US. No fever. Timing: constant, other - not improved with ABx. Severity: moderate Modifying Factors - (Improves): Present: other - nothing Modifying Factors - (Worsens): Present: other - nothing Review of Systems - Review of Systems Constitutional: Absent: fever EYE: Present: no symptoms reported ENT: Absent: sore throat Respiratory: Absent: shortness of breath Cardiology: Absent: chest pain Gastrointestinal/Abdominal: Absent: abdominal pain Genitourinary: Present: other - recent UTI diagnosed Musculoskeletal: Present: See HPI Skin: Present: See HPI Neurological: Present: other - chronic weakness, no acute weakness All Other Systems: All systems neg except as marked Medical History (Last Reviewed 09/17/19 @ 18:56 by Jimi Montgomery MD) Low back pain radiating down leg (Chronic) Low back pain potentially associated with spinal stenosis (Chronic) DVT, lower extremity (Chronic) Allergic rhinitis Onset Date: ~09/04/14 Asthma Onset Date: Unknown Balance disorder Onset Date: ~05/26/16 Bilateral hand numbness Onset Date: ~11/21/15 Carpal tunnel syndrome Onset Date: ~11/28/11 Cerebral palsy Onset Date: Unknown Chronic renal failure Onset Date: ~08/08/13 Colitis, ulcerative Onset Date: Unknown DVT (deep venous thrombosis) Onset Date: ~07/12/17 02/12/17, 07/12/17, 08/02/17 Depression Onset Date: Unknown Erectile dysfunction Onset Date: ~08/27/12 Hepatitis Onset Date: Unknown Hiatal hernia Onset Date: Unknown Hypertension Onset Date: ~08/08/13 Insomnia Onset Date: Unknown Iron deficiency anemia Onset Date: ~12/16/16 Kidney stone Onset Date: Unknown Left foot pain Onset Date: ~09/06/15 Low back pain Onset Date: ~07/22/15 Pinworms Onset Date: ~11/09/15 Shoulder dislocation Onset Date: ~02/04/13 Spinal stenosis Onset Date: Unknown Surgical History: Surgical History (Last Reviewed 09/17/19 @ 18:56 by Jimi Montgomery MD) Fractured nose Onset Date: ~1976 repaired H/O repair of rotator cuff Onset Date: ~1999 left History of cystoscopy Onset Date: ~2014 2014, 02/02/17 History of lithotripsy Onset Date: ~07/29/15 Hx of cholecystectomy Onset Date: ~03/11/08 Hx of dilation of urethra Onset Date: Unknown Hx of knee surgery Onset Date: ~1979 left Lipoma of back Onset Date: Unknown removal S/P epidural steroid injection Onset Date: ~03/21/12 Family History: Family History (Last Reviewed 09/17/19 @ 18:56 by Jimi Montgomery MD) Brother Heart disease Brother Cancer bladder Celiac disease Heart disease Diabetes Kidney failure Mother Diabetes Depression Heart disease Hypertension CVA (cerebral vascular accident) Father Heart disease Myocardial infarction Parkinson disease Social History: (Last Reviewed 09/17/19 @ 18:56 by Jimi Montgomery MD) Social History: Marital status: current occupational status: retired Service: No Tobacco: Smoking Status: Former smoker Alcohol: alcohol intake: current Substance Use: substance use type: does not use Dietary Habits: caffeine: Yes Physical Exam - Physical Exam General Appearance: Present: alert, no apparent distress Head Exam: Present: normal inspection, no evidence of injury Eye Exam: Normal inspection: bilateral, PERRL: bilateral Ears, Nose, Throat: Present: normal ENT inspection Neck: Present: normal inspection Respiratory: Present: no respiratory distress, normal breath sounds, no accessory muscle use, lungs clear Cardiovascular/Chest: Present: regular rate, rhythm, normal peripheral pulses Gastrointestinal/Abdominal: Present: normal bowel sounds, nontender, soft Back Exam: Absent: CVA tenderness (R), CVA tenderness (L) Extremity Exam: Present: other - There are raised red areas right forearm of uncertain etiology. No abscess noted. Left posterio upper leg with redness= also but no lumps here. Neurological Exam: Present: other - no acute unilateral focal weakness, chronic neurologic issues noted Skin Exam: Present: normal color, warm/dry Progress - Results and Orders Patient's Lab Results:: I have reviewed the patient's lab results. - Vital Signs Patient's Vital Signs:: I have reviewed the patient's vital signs. Vital Signs: Vital Signs 09/17/19 17:21 Temperature 36.3 C Pulse Rate 120 H Respiratory Rate 22 H Blood Pressure 89/54 L O2 Sat by Pulse Oximetry 95 - Progress/Reassessment Chief Complaint: General Assessment - Transfer of Care Physician Sign Out: Jimi Montgomery Receiving Physician: Adiel Hudson Pending Results: CT/MRI results, Labs Departure Clinical Impression: Abscess Sepsis Qualifiers: Sepsis type: sepsis due to unspecified organism Sepsis acute organ dysfunction status: with acute organ dysfunction Severe sepsis acute organ dysfunction type: unspecified Severe sepsis shock status: without septic shock Qualified Code(s): A41.9 - Sepsis, unspecified organism - Departure Disposition: Still a patient Condition: Stable <Adiel Hudson - Last Filed: 09/18/19 01:20> Medical Problem HPI - Immun/Allergies/Home Medications Immunizations: IMMUNIZATION HX Immunizations Up to Date Yes History of Influenza Vaccine No Hx Pneumococcal Vaccination Yes Medical History (Last Reviewed 09/17/19 @ 18:56 by Jimi Montgomery MD) Low back pain radiating down leg (Chronic) Low back pain potentially associated with spinal stenosis (Chronic) DVT, lower extremity (Chronic) Allergic rhinitis Onset Date: ~09/04/14 Asthma Onset Date: Unknown Balance disorder Onset Date: ~05/26/16 Bilateral hand numbness Onset Date: ~11/21/15 Carpal tunnel syndrome Onset Date: ~11/28/11 Cerebral palsy Onset Date: Unknown Chronic renal failure Onset Date: ~08/08/13 Colitis, ulcerative Onset Date: Unknown DVT (deep venous thrombosis) Onset Date: ~07/12/17 02/12/17, 07/12/17, 08/02/17 Depression Onset Date: Unknown Erectile dysfunction Onset Date: ~08/27/12 Hepatitis Onset Date: Unknown Hiatal hernia Onset Date: Unknown Hypertension Onset Date: ~08/08/13 Insomnia Onset Date: Unknown Iron deficiency anemia Onset Date: ~12/16/16 Kidney stone Onset Date: Unknown Left foot pain Onset Date: ~09/06/15 Low back pain Onset Date: ~07/22/15 Pinworms Onset Date: ~11/09/15 Shoulder dislocation Onset Date: ~02/04/13 Spinal stenosis Onset Date: Unknown Surgical History: Surgical History (Last Reviewed 09/17/19 @ 18:56 by Jimi Montgomery MD) Fractured nose Onset Date: ~1976 repaired H/O repair of rotator cuff Onset Date: ~1999 left History of cystoscopy Onset Date: ~2014 2014, 02/02/17 History of lithotripsy Onset Date: ~07/29/15 Hx of cholecystectomy Onset Date: ~03/11/08 Hx of dilation of urethra Onset Date: Unknown Hx of knee surgery Onset Date: ~1979 left Lipoma of back Onset Date: Unknown removal S/P epidural steroid injection Onset Date: ~03/21/12 Family History: Family History (Last Reviewed 09/17/19 @ 18:56 by Jimi Montgomery MD) Brother Heart disease Brother Cancer bladder Celiac disease Heart disease Diabetes Kidney failure Mother Diabetes Depression Heart disease Hypertension CVA (cerebral vascular accident) Father Heart disease Myocardial infarction Parkinson disease Social History: (Last Reviewed 09/17/19 @ 18:56 by Jimi Montgomery MD) Social History: Marital status: current occupational status: retired Service: No Tobacco: Smoking Status: Former smoker Alcohol: alcohol intake: current Substance Use: substance use type: does not use Dietary Habits: caffeine: Yes Physical Exam - Physical Exam General Appearance: Present: alert, no apparent distress Respiratory: Present: no respiratory distress, no accessory muscle use Extremity Exam: Present: other - Right forearm multiple erythematous nodules noted. Most distal is somewhat fluctuant. Left distal thigh showed no fluctuant areas or specific place that would be amenable to aspiration or I&D. Progress - Results and Orders Patient's Lab Results:: I have reviewed the patient's lab results. - Vital Signs Patient's Vital Signs:: I have reviewed the patient's vital signs. Vital Signs: Vital Signs 09/17/19 17:21 09/17/19 18:56 09/17/19 19:54 Temperature 36.3 C Pulse Rate 120 H 117 H 109 H Respiratory Rate 22 H 22 H 20 Blood Pressure 89/54 L 113/57 120/73 O2 Sat by Pulse Oximetry 95 94 98 - CT/Ultrasound CT/Ultrasound Narrative: Ultrasound right upper extremity. neg for DVT 4.7 X 2.2 X 1.4 cm complex fluid collection in the right forearm consistent with abscess Ultrasound left lower extremity: Negative for DVT. 4.1 x 1.5 x 0.7 cm distal thigh fluid collection concerning for abscess - Progress/Reassessment Progress:: Improved Progress Note-Subjective: Assumed care from Dr. Montgomery at 2000 hrs. patient remained stable and awaiting his ultrasound. 09/17/19 22:32 Spoke with the patient about I&D for the arm abscess but the leg abscess does not seem palpable and would be higher risk for complications. Second lactic acid is 1.8. 09/17/19 23:[address] Pereira and he agrees with IV antibiotics and observation admission. 09/18/19 00:26 Started vancomycin 1 gm then to be dosed by pharmacy and cefepime 2gm q 24 adjusting for decreased renal clearance. 09/18/19 00:32 I did not realize the patient did not get a full sepsis bolus but only received 1000 ml. remaining sepsis bolus ordered 2200 ml to run at 126 ml / hr Due to the fact the patient did have one initial low blood pressure which is somewhat questionable due to the fact that there is no treatment given and the patient's blood pressure came up on its own at next measurement but patient had not urinated by the time he left the ER and fluids were ordered. Adiel Hudson DO Procedures Right Arm Anesthesia: 1% Lidocaine I & D Prep: betadine prep Blade Size: 19-gauge needle Findings and Actions: purulent drainage moderate, probed/breakup loculation, cultures obtained Estimated blood loss (ml): 10 - Needle aspiration was attempted due to patient being on anticoagulants. No fluid was able to be aspirated but purulent drainage was milked out of the wound after aspiration attempt Complications: Pt jasmyn procedure well - Adiel Hudson DO
[2019-09-17] MEDS ORDERED: NORMAL SALINE 1,000 ML IV ONE (19:57)
[2019-09-17] MEDS ORDERED: LIDOCAINE HCL 50 ML VIAL IJ ONE (23:05)
[2019-09-18] MEDS ORDERED: VANCOMYCIN HCL 1 GM in DEXTROSE 5 % IN WATER 250 ML IV ONE ×2 (00:17)
[2019-09-18] MEDS: NORMAL SALINE 1,000 ML IV PRN ×3 (00:34→16:34)
[2019-09-18 01:24] LABS: Urine Bilirubin Negative (NEGATIVE); Urine Blood Negative /ul (NEGATIVE); Urine Ketone Negative (NEGATIVE); Urine Nitrite Negative (NEGATIVE); Urine Protein Negative (NEGATIVE); Urine Specific Gravity 1.025 SP.GR. (1.005-1.030); Urine Urobilinogen Normal (NORMAL); Urine pH 5.5 pH (5.0-7.0)
[2019-09-18 01:31] LABS: Urine Appearance Clear (CLEAR); Urine Bacteria None Seen; Urine Color Yellow; Urine RBC None Seen /hpf (0-5); Urine WBC None Seen /hpf (0-5)
[2019-09-18] MEDS ORDERED: ACETAMINOPHEN 500 MG TABLET PO PRN (02:02)
[2019-09-18] MEDS: clonazePAM 1 MG TABLET PO SCH ×2 (02:31→21:12)
[2019-09-18] MEDS: APIXABAN 5 MG TABLET PO SCH ×2 (02:31→08:03)
[2019-09-18] MEDS: diphenhydrAMINE HCL 50 MG CAPSULE PO PRN ×2 (02:32→21:12)
[2019-09-18] MEDS: DOXAZOSIN MESYLATE 2 MG TABLET PO SCH ×2 (02:33→20:58)
--- NOTE | 2019-09-18 06:43 | HP ---
Chief Complaint - Chief Complaint Date of Service: 09/18/19 Time of Service: 06:36 Chief Complaint: R arm cellulitis worsening, despite outpt. oral abx. History of Present Illness: Pt is 69yo Male with longstanding CP, pain from spinal stenosis and recent dx of MS, has been on high dose steroids for the last 2 months due to suspicion for MS and due to relief of his muscle spasms and back pain, started with a cellulitis of his RUE and was placed on Bactrim BID, Cefadroxil 500mg po bid and levaquin 750mg po daily (partly due to UTI) by [facility] over 10 days ago. Despite this treatment his cellulitis not only didn't improve, it worsened with "bumps" forming on his anterior R forearm, with increasing redness and pain that was becoming intolerable. Pt. and deny any mental status changes, but did have increased fatigue and weakness and malaise. A picture of his arm was sent to me last night at home and I instructed them to go to ER due to his multiple medical issues, failure on a good regimen of oral abx and due to his comorbidities that put him at high risk for becoming septic rapidly. (Pt. denied fevers or chills and actually stated he felt fairly well the am prior to coming to the ER, but sx's progressed throughout the day.) In the ER he was found to have a BP of 89/54, HR of 120 and RR 22. His WBC was 10.8, but had a left shift and a drop in his platelets to 135, lactic acid of 2.1, Cr of 2.24 (normal by hx for him is 1.4 or less) and a GFR of 31. He was found to have abscesses on his R forearm and an erythematous area behind his L knee. The most distal abscess was aspirated with an 18 gauge needle with purlulent material expressed from it. The other areas did not appear to be amenable to drainage. Pt. received IVF in the ER, was started on IV vancomycin for presumed MRSA and admitted for further evaluation and treatment. Medical History (Last Reviewed 09/18/19 @ 01:35 by Rochelle Qureshi RN) Low back pain radiating down leg (Chronic) Low back pain potentially associated with spinal stenosis (Chronic) DVT, lower extremity (Chronic) Allergic rhinitis Onset Date: ~09/04/14 Asthma Onset Date: Unknown Balance disorder Onset Date: ~05/26/16 Bilateral hand numbness Onset Date: ~11/21/15 Carpal tunnel syndrome Onset Date: ~11/28/11 Cerebral palsy Onset Date: Unknown Chronic renal failure Onset Date: ~08/08/13 Colitis, ulcerative Onset Date: Unknown DVT (deep venous thrombosis) Onset Date: ~07/12/17 02/12/17, 07/12/17, 08/02/17 Depression Onset Date: Unknown Erectile dysfunction Onset Date: ~08/27/12 Hepatitis Onset Date: Unknown Hiatal hernia Onset Date: Unknown Hypertension Onset Date: ~08/08/13 Insomnia Onset Date: Unknown Iron deficiency anemia Onset Date: ~12/16/16 Kidney stone Onset Date: Unknown Left foot pain Onset Date: ~09/06/15 Low back pain Onset Date: ~07/22/15 Pinworms Onset Date: ~11/09/15 Shoulder dislocation Onset Date: ~02/04/13 Spinal stenosis Onset Date: Unknown Surgical History: Surgical History (Last Reviewed 09/18/19 @ 01:36 by Rochelle Qureshi RN) Fractured nose Onset Date: ~1976 repaired H/O repair of rotator cuff Onset Date: ~1999 left History of cystoscopy Onset Date: ~2014 2014, 02/02/17 History of lithotripsy Onset Date: ~07/29/15 Hx of cholecystectomy Onset Date: ~03/11/08 Hx of dilation of urethra Onset Date: Unknown Hx of knee surgery Onset Date: ~1979 left Lipoma of back Onset Date: Unknown removal S/P epidural steroid injection Onset Date: ~03/21/12 Family History: Family History (Last Reviewed 09/18/19 @ 01:36 by Rochelle Qureshi RN) Brother Heart disease Brother Cancer bladder Celiac disease Heart disease Diabetes Kidney failure Mother Diabetes Depression Heart disease Hypertension CVA (cerebral vascular accident) Father Heart disease Myocardial infarction Parkinson disease Social History: (Last Reviewed 09/18/19 @ 01:36 by Rochelle Qureshi RN) Social History: Marital status: current occupational status: retired Service: No Tobacco: Smoking Status: Former smoker Alcohol: alcohol intake: current Substance Use: substance use type: does not use Dietary Habits: caffeine: Yes Review Of Systems (GEN) - Review of Systems Generalized/Overall Review: Present: Weakness, Malaise, Fatigue. Absent: Chills, Fever EENTM: Present: Blurred Vision. Absent: Double Vision Respiratory: Present: No Symptoms Reported Cardiac: Present: No Symptoms Reported Abdominal: Present: No Symptoms Reported Genitourinary: Present: No Symptoms Reported Musculoskeletal: Present: Joint Pain, Back Pain Neurological: Present: Weakness Skin: Present: Lesions, Lumps, Change in Color Endocrine: Present: No Symptoms Reported Immunizations: IMMUNIZATION HX Immunizations Up to Date Yes History of Influenza Vaccine No Hx Pneumococcal Vaccination Yes Allergies/Adverse Reactions: Allergies Allergy/AdvReac Type Severity Reaction Status Date / Time tetracycline [Tetracycline] Allergy Severe Unable to Verified 09/17/19 17:25 urinate sucralfate [From Carafate] AdvReac stomach Verified 09/17/19 17:25 troubles Home Medications: HOME MEDICATIONS Cholecalciferol (Vitamin D3) [Vitamin D3] 10,000 unit PO DAILY 10/04/16 [Last Taken Unknown] acetaminophen 325 mg tablet 650 mg PO Q6H PRN tab 05/21/18 [Last Taken Unknown] albuterol sulfate 1.25 mg IH QID PRN 05/21/18 [Last Taken Unknown] irbesartan 300 mg tablet 300 mg PO DAILY #90 tab 12/11/18 [Last Taken Unknown] doxazosin 8 mg tablet 8 mg PO HS #90 tab 03/11/19 [Last Taken Unknown] apixaban 5 mg tablet See Rx Instructions .ROUTE .COMPLEX #60 tab 07/04/19 [Last Taken Unknown] gabapentin 600 mg tablet 600 mg PO .COMPLEX #120 tab 07/04/19 [Last Taken Unknown] dexamethasone 6 mg tablet 6 mg PO BID #60 tab 07/24/19 [Last Taken Unknown] pantoprazole 40 mg tablet,delayed release See Rx Instructions .ROUTE .COMPLEX #90 tablet 08/06/19 [Last Taken Unknown] hydrochlorothiazide 25 mg tablet 25 mg PO DAILY #30 tab 08/15/19 [Last Taken Unknown] Acetaminophen [Tylenol] 1,300 mg PO DAILY 09/18/19 [Last Taken Unknown] Acetaminophen/Diphenhydramine [Tylenol Pm Ex-Strength Caplet] 2 ea PO HS 09/18/19 [Last Taken Unknown] Clonazepam 3 mg PO HS 09/18/19 [Last Taken Unknown] Exam - Exam Vital Signs: Vital Signs - Last Taken Temp 36.2 C 09/18/19 06:26 Pulse 96 09/18/19 06:26 Resp 18 09/18/19 06:26 BP 118/80 09/18/19 06:26 Pulse Ox 95 09/18/19 06:26 Constitutional: Present: Alert, Oriented x3, Cooperative, Mild distress, Moderate distress ENT Exam: Present: hearing grossly normal Eye Exam: bilateral eye: normal inspection, PERRL, EOMI Neck: Present: supple Respiratory: Present: lungs clear, normal breath sounds, no respiratory distress, no accessory muscle use Cardiovascular/Chest: Present: regular rate, rhythm, no murmur Peripheral Pulses: dorsalis-pedis (R): 2+, dorsalis-pedis (L): 2+, radial (R): 2+ Abdomen: Present: Normal bowel sounds, soft, nontender, nondistended, no rebound tenderness, no hepatospenomegaly, obese /Rectal: Present: Exam deferred Extremity: Present: no calf tenderness, lower extremity edema - jose LE, other - redness but no fluctuance behind L knee. R arm is wrapped with no streaking erythema in the upper arm. Area is very tender to palpation. 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 tested, alert, normal mood/affect, oriented x 3, depressed affect Appearance: Present: appropriate appearance, appropriate insight, neat, no memory impairment Eye contact: Present: cooperative, good eye contact, normal speech Thoughts: Present: normal thought pattern, no apparent hallucination Diagnostic Studies: Abnormal Lab Results 09/17/19 09/17/19 09/17/19 Range/Units 18:30 18:30 18:30 WBC 10.6 H (4.0-10.5) K/mm3 RBC 3.95 L (4.7-6.0) M/mm3 Hgb 13.0 L (13.5-18.0) gm/dL Hct 39.0 L (42.0-52.0) % MCH 32.9 H (27-31) pg RDW 14.9 H (11.5-14.0) % Plt Count 135 L (150-450) K/mm3 Lymphocytes % (Manual) 15 L (20-51) % Monocytes % (Manual) 10 H (0-9) % Neutrophils # (Manual) 8.0 H (1.3-6.0) K/mm3 Monocytes # (Manual) 1.1 H (0.0-1.0) k/mm3 BUN 52 H D (6-23) mg/dL Creatinine 2.24 H D (0.4-1.4) mg/dL Est GFR (Non-Af Amer) 31 L D (60-130) mL/min BUN/Creatinine Ratio 23.2 H (9.0-21.6) Random Glucose 117 H (70-110) mg/dL Lactic Acid, Venous 2.1 H (0.4-2.0) mmol/L Alkaline Phosphatase 44 L (50-170) U/L Total Protein 5.4 L (6.2-8.2) gm/dL Albumin 2.6 L (3.4-5.0) gm/dl 09/18/19 Range/Units 00:30 WBC (4.0-10.5) K/mm3 RBC (4.7-6.0) M/mm3 Hgb (13.5-18.0) gm/dL Hct (42.0-52.0) % MCH (27-31) pg RDW (11.5-14.0) % Plt Count (150-450) K/mm3 Lymphocytes % (Manual) (20-51) % Monocytes % (Manual) (0-9) % Neutrophils # (Manual) (1.3-6.0) K/mm3 Monocytes # (Manual) (0.0-1.0) k/mm3 BUN (6-23) mg/dL Creatinine 1.85 H (0.4-1.4) mg/dL Est GFR (Non-Af Amer) (60-130) mL/min BUN/Creatinine Ratio (9.0-21.6) Random Glucose (70-110) mg/dL Lactic Acid, Venous (0.4-2.0) mmol/L Alkaline Phosphatase (50-170) U/L Total Protein (6.2-8.2) gm/dL Albumin (3.4-5.0) gm/dl Laboratory Results WBC 10.6 K/mm3 (4.0-10.5) H 09/17/19 18:30 RBC 3.95 M/mm3 (4.7-6.0) L 09/17/19 18:30 Hgb 13.0 gm/dL (13.5-18.0) L 09/17/19 18:30 Hct 39.0 % (42.0-52.0) L 09/17/19 18:30 MCV 98.7 fl (78-100) 09/17/19 18:30 MCH 32.9 pg (27-31) H 09/17/19 18:30 MCHC 33.3 g/dl (32-36) 09/17/19 18:30 RDW 14.9 % (11.5-14.0) H 09/17/19 18:30 Plt Count 135 K/mm3 (150-450) L 09/17/19 18:30 MPV 8.6 fl (8-11.3) 09/17/19 18:30 Neutrophils % (Manual) 75 % (42-75) 09/17/19 18:30 Lymphocytes % (Manual) 15 % (20-51) L 09/17/19 18:30 Monocytes % (Manual) 10 % (0-9) H 09/17/19 18:30 Neutrophils # (Manual) 8.0 K/mm3 (1.3-6.0) H 09/17/19 18:30 Lymphocytes # (Manual) 1.6 k/mm3 (1.5-3.5) 09/17/19 18:30 Monocytes # (Manual) 1.1 k/mm3 (0.0-1.0) H 09/17/19 18:30 Platelet Estimate Normal (NORMAL) 09/17/19 18:30 RBC Morphology Normal (NORMAL) 09/17/19 18:30 D-Dimer 0.41 ug/mL (0.19-0.49) D 09/17/19 18:30 Sodium 136 mmol/L (132-142) 09/17/19 18:30 Plasma Sodium 136 mmol/L (130-142) 09/17/19 18:30 Potassium 4.2 mmol/L (3.4-4.6) 09/17/19 18:30 Chloride 102 mmol/L (97-106) 09/17/19 18:30 Carbon Dioxide 31.0 mmol/L (24-32.6) 09/17/19 18:30 Anion Gap 7.2 mmol/L (6.8-13.8) 09/17/19 18:30 BUN 52 mg/dL (6-23) H D 09/17/19 18:30 Creatinine 1.85 mg/dL (0.4-1.4) H 09/18/19 00:30 Est GFR (Non-Af Amer) 31 mL/min (60-130) L D 09/17/19 18:30 BUN/Creatinine Ratio 23.2 (9.0-21.6) H 09/17/19 18:30 Random Glucose 117 mg/dL (70-110) H 09/17/19 18:30 Lactic Acid, Venous 1.8 mmol/L (0.4-2.0) 09/17/19 22:05 Calcium 8.9 mg/dL (7.9-10.9) 09/17/19 18:30 Calcium Adj for Albumin 9.7 mg/dL (8.4-10.2) 09/17/19 18:30 Total Bilirubin 0.4 mg/dL (0.0-1.1) 09/17/19 18:30 AST 14 U/L (0-48) 09/17/19 18:30 ALT 25 U/L (19-67) 09/17/19 18:30 Alkaline Phosphatase 44 U/L (50-170) L 09/17/19 18:30 C-Reactive Prot, Quant Less than 0.2 mg/dL (0.0-0.9) 09/17/19 18:30 Total Protein 5.4 gm/dL (6.2-8.2) L 09/17/19 18:30 Albumin 2.6 gm/dl (3.4-5.0) L 09/17/19 18:30 Urine Color Yellow 09/18/19 01:07 Urine Appearance Clear (CLEAR) 09/18/19 01:07 Urine pH 5.5 pH (5.0-7.0) 09/18/19 01:07 Ur Specific [place] 1.025 SP.GR. (1.005-1.030) 09/18/19 01:07 Urine Protein Negative mg/dL (NEGATIVE) 09/18/19 01:07 Urine Glucose (UA) Negative mg/dL (NEGATIVE) 09/18/19 01:07 Urine Ketones Negative mg/dL (NEGATIVE) 09/18/19 01:07 Urine Blood Negative /ul (NEGATIVE) 09/18/19 01:07 Urine Nitrate Negative (NEGATIVE) 09/18/19 01:07 Urine Bilirubin Negative mg/dl (NEGATIVE) 09/18/19 01:07 Urine Urobilinogen Normal EU/dl (NORMAL) 09/18/19 01:07 Ur Leukocyte Esterase Negative /ul (NEGATIVE) 09/18/19 01:07 Urine RBC None seen /hpf (0-5) 09/18/19 01:07 Urine WBC None seen /hpf (0-5) 09/18/19 01:07 Ur Epithelial Cells None seen /hpf (0-5) 09/18/19 01:07 Urine Bacteria None seen (NONE) 09/18/19 01:07 Urine Culture Comments No culture indicated 09/18/19 01:07 Assessment/Plan - Assessment/Plan (1) Multiple sclerosis Assessment: continue steroids for now. Pt. is at high risk for falls and getting very ill due to the steroids and the MS. would recommend walker with any ambulation. Problem: Acute (2) Acute renal failure Assessment: End organ damage most likely due to his current sepsis and infection. It's possible it could have been from the levaquin, but there was improvement in Cr after IVF given, demonstrating it is more likely due to his sepsis, causing the ARF. Problem: Acute Qualifiers: Acute renal failure type: with acute tubular necrosis Qualified Code(s): N17.0 - Acute kidney failure with tubular necrosis (3) Cellulitis and abscess of upper arm and forearm Assessment: failed outpt. therapy. cultures are pending. Will await cultures, but continue him on IV vancomycin for now. Hopefully cultures can direct outpt. therapy better, but it may take > 24hrs for cultures to return and pt. is at high risk for significant morbidity, if not mortality, if not properly covered with IV abx or proper abx based on cultures. Though IV vancomycin could be done outpt, the weekends would be problematic and I'm not sure if there is available home health or even MT support to do IV abx in an outpt. setting. Problem: Acute (4) Sepsis Assessment: based on elevated lactic acid, hypotensioin, tachycardia, tachypnea, ARF and leukocytosis with left shift - this all supports pt. being septic. Source is from the abscesses on his right forearm and his L popliteal area. GS has been consulted to evaluate for further I&D. he has failed outpt. treatment with numerous antibiotics. Will see how he responds to IV vancomycin and what cul tures reveal. Problem: Acute Qualifiers: Sepsis type: sepsis due to unspecified organism Sepsis acute organ dysfunction status: with acute organ dysfunction Severe sepsis acute organ dysfunction type: unspecified Severe sepsis shock status: without septic shock Qualified Code(s): A41.9 - Sepsis, unspecified organism; R65.20 - Severe sepsis without septic shock (5) Cerebral palsy Problem: Chronic Qualifiers: (6) Discharge planning issues Assessment: Given patients vitals, comorbidities and high risks for adverse outcomes if not treated, feel patient needs to be inpatient with a minimum of 2 midnights of IV abx to show improvement and to await culture results and to assess for further needs of possible PT, given his CP and MS issues along with his infection. I also would like to see resolution of his acute renal failure and be sure the vancomycin is not going to exacerbate this and I don't think this can all be resolved in an outpt. setting in a short time frame. Discharging him home quickly has high risk for extreme morbidity if not mortality. Problem: Acute
[2019-09-18] MEDS ORDERED: ACETAMINOPHEN 325 MG TABLET PO PRN (06:50)
[2019-09-18] MEDS ORDERED: ALBUTEROL SULFATE 2.5 MG/0.5 ML VIAL.NEB IH PRN (06:50)
[2019-09-18] MEDS: GABAPENTIN 600 MG TABLET PO SCH ×5 (08:03→21:01)
[2019-09-18] MEDS: PANTOPRAZOLE SODIUM 40 MG TABLET.EC PO SCH (08:03)
[2019-09-18] MEDS: CEFEPIME HCL 2 GM in DEXTROSE 5 % IN WATER 100 ML IV SCH ×2 (08:26)
[2019-09-18] MEDS ORDERED: DEXAMETHASONE 2 MG TABLET PO SCH (09:00)
[2019-09-18] MEDS ORDERED: APIXABAN 5 MG TABLET PO SCH (09:00)
[2019-09-18] MEDS ORDERED: FLU VACC QS2019-20(6MOS UP)/PF 60 MCG/0.5 ML SYRINGE IM ONE (09:00)
--- NOTE | 2019-09-18 09:56 | CONS ---
HPI - General Date of Service: 09/18/19 Source: patient Exam Limitations: no limitations - History of Present Illness Initial Comments: Nathan is a pleasant 69-year-old gentleman who was noticed swelling of the right antecubital region and left popliteal region. He denies any trauma to the area. He came in through the emergency room last night. He is on blood thinners. The right antecubital was aspirated. The left popliteal region was indurated with no fluctuance. Today he states both areas are feeling better. Timing/Duration: 24 hours Severity: moderate Modifying Factors - (Worsens): Reports: movement Modifying Factors - (Improves): Reports: immobilization Associated Symptoms: fever/chills Allergies/Adverse Reactions: Allergies tetracycline [Tetracycline] Allergy (Severe, Verified 09/17/19 17:25) Unable to urinate sucralfate [From Carafate] Adverse Reaction (Verified 09/17/19 17:25) stomach troubles Home Medications: Home Medications Medication Instructions Recorded Last Taken Cholecalciferol (Vitamin D3) 10,000 unit PO DAILY 10/04/16 Unknown [Vitamin D3] acetaminophen 325 mg tablet 650 mg PO Q6H PRN tab 05/21/18 Unknown albuterol sulfate 1.25 mg IH QID PRN 05/21/18 Unknown irbesartan 300 mg tablet 300 mg PO DAILY #90 tab 12/11/18 Unknown doxazosin 8 mg tablet 8 mg PO HS #90 tab 03/11/19 Unknown apixaban 5 mg tablet See Rx Instructions .ROUTE 07/04/19 Unknown .COMPLEX #60 tab gabapentin 600 mg tablet 600 mg PO .COMPLEX #120 tab 07/04/19 Unknown dexamethasone 6 mg tablet 6 mg PO BID #60 tab 07/24/19 Unknown pantoprazole 40 mg tablet,delayed See Rx Instructions .ROUTE 08/06/19 Unknown release .COMPLEX #90 tablet hydrochlorothiazide 25 mg tablet 25 mg PO DAILY #30 tab 08/15/19 Unknown Acetaminophen [Tylenol] 1,300 mg PO DAILY 09/18/19 Unknown Acetaminophen/Diphenhydramine 2 ea PO HS 09/18/19 Unknown [Tylenol Pm Ex-Strength Caplet] Clonazepam 3 mg PO HS 09/18/19 Unknown Procedures Cholecystectomy (03/09/08) Injection of anesthetic into spinal canal for analgesia (03/21/12) Injection of other agent into spinal canal (03/21/12) Injection of steroid (03/21/12) Medications - Medications Current Medications: Current Medications Acetaminophen (Tylenol) 1,000 mg PO HS PRN PRN Reason: Mild pain (pain scale 1-3) Stop: 10/18/19 02:03 Last Admin: 09/18/19 02:32 Dose: 1,000 mg Documented by: Apixaban (Eliquis) 5 mg PO BID GISELLE Stop: 10/18/19 02:16 Last Admin: 09/18/19 08:03 Dose: 5 mg Documented by: Clonazepam (Klonopin) 3 mg PO HS GISELLE Stop: 10/18/19 02:16 Last Admin: 09/18/19 02:31 Dose: 3 mg Documented by: Dexamethasone (Decadron) 6 mg PO BID GISELLE Stop: 10/18/19 09:01 Last Admin: 09/18/19 08:03 Dose: 6 mg Documented by: Diphenhydramine HCl (Benadryl) 50 mg PO HS PRN PRN Reason: Sleep Stop: 10/18/19 02:04 Last Admin: 09/18/19 02:32 Dose: 50 mg Documented by: Doxazosin Mesylate (Cardura) 8 mg PO HS GISELLE Stop: 10/18/19 02:16 Last Admin: 09/18/19 02:33 Dose: Not Given Documented by: Gabapentin (Neurontin) 600 mg PO QID GISELLE Stop: 10/18/19 07:01 Last Admin: 09/18/19 08:03 Dose: 600 mg Documented by: Cefepime HCl 2 gm/ Dextrose/ (Water) 100 mls @ 200 mls/hr IV DAILY GISELLE; Protocol Stop: 10/18/19 09:01 Last Infusion: 09/18/19 08:56 Dose: Infused Documented by: Sodium Chloride (Sodium Chloride 0.9%) 1,000 mls @ 126 mls/hr IV .Q7H57M PRN PRN Reason: HYDRATION Last Admin: 09/18/19 08:20 Dose: 126 mls/hr Documented by: Pantoprazole Sodium (Protonix) 40 mg PO DAILY@0700 GISELLE Stop: 10/18/19 07:01 Last Admin: 09/18/19 08:03 Dose: 40 mg Documented by: Review of Systems - Review of Systems Generalized/Overall Review: Present: Malaise EENTM: Present: No Symptoms Reported Respiratory: Present: No Symptoms Reported Cardiac: Present: No Symptoms Reported Abdominal: Present: No Symptoms Reported Genitourinary: Present: No Symptoms Reported Musculoskeletal: Present: No Symptoms Reported Neurological: Present: No Symptoms Reported Skin: Present: Lumps Endocrine: Present: No Symptoms Reported Physical Examination - Exam Vital Signs: Vital Signs - Last Taken Temp 36.3 C 09/18/19 09:26 Pulse 99 09/18/19 09:26 Resp 16 09/18/19 09:26 BP 107/62 09/18/19 09:26 Pulse Ox 95 09/18/19 09:26 O2 Oxygen Delivery Method Room Air Constitutional: Present: Alert, Oriented x3, Cooperative ENT Exam: Present: hearing grossly normal Eye Exam: bilateral eye: normal inspection Neck: Present: supple Breasts: Present: Exam deferred Respiratory: Present: lungs clear, normal breath sounds Cardiovascular/Chest: Present: regular rate, rhythm Abdomen: Present: soft /Rectal: Present: Exam deferred Extremity: Present: swelling - Right antecubital region. Minimal erythema. Left popliteal region induration with out fluctuance Neurologic: Present: toe pounder II-XII nml as tested Appearance: Present: appropriate appearance Eye contact: Present: cooperative, good eye contact Thoughts: Present: normal thought pattern - Results and Findings: Lab/Microbiology results last 24 hrs: Abnormal/Pending Laboratory Last 24 HRS 09/18/19 09/17/19 09/17/19 00:30 18:30 18:30 WBC RBC Hgb Hct MCH RDW Plt Count Lymphocytes % (Manual) Monocytes % (Manual) Neutrophils # (Manual) Monocytes # (Manual) BUN 52 H D Creatinine 1.85 H 2.24 H D Est GFR (Non-Af Amer) 31 L D BUN/Creatinine Ratio 23.2 H Random Glucose 117 H Lactic Acid, Venous 2.1 H Alkaline Phosphatase 44 L Total Protein 5.4 L Albumin 2.6 L 09/17/19 18:30 WBC 10.6 H RBC 3.95 L Hgb 13.0 L Hct 39.0 L MCH 32.9 H RDW 14.9 H Plt Count 135 L Lymphocytes % (Manual) 15 L Monocytes % (Manual) 10 H Neutrophils # (Manual) 8.0 H Monocytes # (Manual) 1.1 H BUN Creatinine Est GFR (Non-Af Amer) BUN/Creatinine Ratio Random Glucose Lactic Acid, Venous Alkaline Phosphatase Total Protein Albumin - Assessments/Findings (1) Abscess Problem: Acute Plan - Plan Plan: Continue antibiotics. Continue to monitor. Will reevaluate in the morning erythema is very minimal. The needle aspiration may have been sufficient for drainage. The left popliteal region does not need to be incised and drained at this point. Discussed with Dr. Becker. Thank you for allowing me to participate in the care of your patient, please call if any questions.
[2019-09-18] MEDS ORDERED: VANCOMYCIN HCL 1 GM, VANCOMYCIN HCL 500 MG in DEXTROSE 5 % IN WATER 500 ML IV SCH ×3 (19:00)
[2019-09-18] MEDS ORDERED: DOXAZOSIN MESYLATE 8 MG PO SCH (21:00)
[2019-09-18] MEDS ORDERED: clonazePAM 1 MG TABLET PO SCH (21:00)
[2019-09-18] MEDS: DEXAMETHASONE 2 MG TABLET PO SCH (21:00)
[2019-09-19 06:36] LABS: Hematocrit 37.9 % (42.0-52.0); Hemoglobin 12.5 gm/dL (13.5-18.0); Mean Cell Volume 100.3 fl (78-100); Mean Corpuscular Hemoglobin 33.1 pg (27-31); Mean Platelet Volume 9.3 fl (8-11.3); Platelet Count 140 K/mm3 (150-450); Red Blood Count 3.78 M/mm3 (4.7-6.0); Red Cell Distribution Width 14.8 % (11.5-14.0); White Blood Count 11.2 K/mm3 (4.0-10.5)
[2019-09-19 06:44] LABS: Total Cells Counted 100
[2019-09-19 06:50] LABS: Albumin * 2.6 gm/dl (3.4-5.0); Anion Gap 8.9 mmol/L (6.8-13.8); BUN/Creatinine Ratio 20.7 (9.0-21.6); Bilirubin, Total 0.6 mg/dL (0.0-1.1); CRP 0.4 mg/dL (0.0-0.9); Ca. Corrected For Albumin 9.4 mg/dL (8.4-10.2); Calcium * 8.6 mg/dL (7.9-10.9); Carbon Dioxide 30.6 mmol/L (24-32.6); Potassium 4.5 mmol/L (3.4-4.6); Total Protein 5.6 gm/dL (6.2-8.2)
[2019-09-19] MEDS ORDERED: APIXABAN 5 MG TABLET PO SCH (07:00)
[2019-09-19 07:03] LABS: Atypical (Reactive) Lymph 8 % (0-2); Band 3 % (0-2.0); Lymphocyte 5 % (20-51); Monocyte 5 % (0-9); Neutrophil 79 % (42-75); Neutrophil # 8.8 K/mm3 (1.3-6.0)
--- NOTE | 2019-09-19 07:03 | PN ---
Jarek Note - Interim Date: 09/19/19 Time: 07:00 Narrative: 09/19/19 07:00 Pt. feeling much better, feels swelling is much improved and the pain is minimal. He feels back to baseline. PE: Pt. looks back to baseline, no longer ill appearing. Abscesses and cellulitis on R arm and post. L knee are much improved - min. dolor, rubor and calor. A/P: Abscesses and cellulitis improving: awaiting cultures to figure out if we can change him to oral abx or if we need to arrange for daily IV abx in annex. Pt. MRSA screen of nares was negative for MRSA, which doesn't preclude his infection from being MRSA, but does show he's not colonized.
[2019-09-19 07:05] LABS: Anisocytosis 1+; Ovalocytes 1+; Platelet Estimate Normal (NORMAL)
[2019-09-19] MEDS: PANTOPRAZOLE SODIUM 40 MG TABLET.EC PO SCH (08:18)
[2019-09-19] MEDS: DEXAMETHASONE 2 MG TABLET PO SCH (08:19)
[2019-09-19] MEDS: GABAPENTIN 600 MG TABLET PO SCH ×2 (08:19→12:40)
[2019-09-19] MEDS: BACLOFEN 10 MG TABLET PO SCH ×2 (08:19→12:40)
[2019-09-19] MEDS ORDERED: LOSARTAN POTASSIUM 50 MG TABLET PO SCH (09:00)
[2019-09-19] MEDS: CEFEPIME HCL 2 GM in DEXTROSE 5 % IN WATER 100 ML IV SCH ×2 (09:42)
--- NOTE | 2019-09-19 10:50 | PN ---
Dictated Progress Note - Date and Time Seen: Date: 09/19/19 Time: 10:49 - Progress Note Narrative: Are is feeling better and looks better. States he feels like a new man Vital Signs - Last Taken Temp 36.5 C 09/19/19 10:00 Pulse 95 09/19/19 10:00 Resp 18 09/19/19 10:00 BP 176/86 H 09/19/19 10:00 Pulse Ox 94 09/19/19 10:00 Abnormal/Pending Laboratory Last 24 HRS 09/19/19 09/19/19 06:10 06:10 WBC 11.2 H RBC 3.78 L Hgb 12.5 L Hct 37.9 L MCV 100.3 H MCH 33.1 H RDW 14.8 H Plt Count 140 L Neutrophils % (Manual) 79 H Band Neuts % (Manual) 3 H Lymphocytes % (Manual) 5 L Neutrophils # (Manual) 8.8 H Lymphocytes # (Manual) 0.6 L Atypic/Reactive Lymphs 8 H BUN 25 H D Random Glucose 128 H Alkaline Phosphatase 44 L Total Protein 5.6 L Albumin 2.6 L Culture 09/17/19 23:19 Wound Culture - Preliminary Arm - Right No Growth 09/17/19 23:10 Blood Culture - Preliminary Blood NO GROWTH 24 HOURS 09/17/19 22:40 Blood Culture - Preliminary Blood NO GROWTH 24 HOURS 09/18/19 01:39 - Final Nares MRSA Negative both arm and leg are improved, no need for drainage non labored respirations Imp: abscess x2 improved sepsis resolving Plan cont ABx, surgery will sign off, recall if needed.
--- NOTE | 2019-09-19 11:33 | DS ---
(1) Multiple sclerosis Problem: Acute (2) Acute renal failure Problem: Acute Qualifiers: Acute renal failure type: with acute tubular necrosis Qualified Code(s): N17.0 - Acute kidney failure with tubular necrosis (3) Cellulitis and abscess of upper arm and forearm Problem: Acute (4) Sepsis Problem: Acute Qualifiers: Sepsis type: sepsis due to unspecified organism Sepsis acute organ dysfunction status: with acute organ dysfunction Severe sepsis acute organ dysfunction type: unspecified Severe sepsis shock status: without septic shock Qualified Code(s): A41.9 - Sepsis, unspecified organism; R65.20 - Severe sepsis without septic shock (5) Cerebral palsy Problem: Chronic Qualifiers: (6) Discharge planning issues Problem: Acute Date of Discharge:: 09/19/19 Description of Stay: Pt. admitted for worsening cellulitis and abscess formation of R forearm and L popliteal area and that was leading to a septic state. consult was done with Dr. Leyva to be sure no I&D was necessary. Needle aspiration done in ER, with culture sent that didn't have any growth. Pt. received 2 doses of IV Cefepime 2gm q24hrs and Vancomycin 1gm IV q24h and he had an initial worsening then improvement in his symptoms, redness and swelling. At time of discharge he was back to his baseline energy levels and feeling much better. Pain was down to a 2/10 at time of discharge. Recommend a full 7 day course of abx and since his culture didn't have any growth, will continue the vanc and cefepime outpt. q24hrs in our annex. For his back pain baclofen was added to his regimen as his dexamethasone was reduced due to immunocompromise concerns with his infection. We will see how his CP and MS do with these changes. He did have end organ damage from his sepsis that did correct with treatment of his infection and with hydration taking his creatinine from 2.21 to 1.21 at time of discharge. No other concerns during his stay here. Procedures Performed: none Results and Findings: Pending Mircobiology Results 09/17/19 23:19 Arm - Right Wound Culture - Preliminary No Growth 09/17/19 23:10 Blood Blood Culture - Preliminary NO GROWTH 24 HOURS 09/17/19 22:40 Blood Blood Culture - Preliminary NO GROWTH 24 HOURS Lab Pending Results 09/17/19 18:30: WBC 10.6 H, RBC 3.95 L, Hgb 13.0 L, Hct 39.0 L, MCV 98.7, MCH 32.9 H, MCHC 33.3, RDW 14.9 H, Plt Count 135 L, MPV 8.6, Neutrophils % (Manual) 75, Lymphocytes % (Manual) 15 L, Monocytes % (Manual) 10 H, Neutrophils # (Manual) 8.0 H, Lymphocytes # (Manual) 1.6, Monocytes # (Manual) 1.1 H, Platelet Estimate Normal, RBC Morphology Normal 09/17/19 18:30: Sodium 136, Plasma Sodium 136, Potassium 4.2, Chloride 102, Carbon Dioxide 31.0, Anion Gap 7.2, BUN 52 H D, Creatinine 2.24 H D, Est GFR (Non-Af Amer) 31 L D, BUN/Creatinine Ratio 23.2 H, Random Glucose 117 H, Calcium 8.9, Calcium Adj for Albumin 9.7, Total Bilirubin 0.4, AST 14, ALT 25, Alkaline Phosphatase 44 L, C-Reactive Prot, Quant Less than 0.2, Total Protein 5.4 L, Albumin 2.6 L 09/17/19 18:30: D-Dimer 0.41 D 09/17/19 18:30: Lactic Acid, Venous 2.1 H 09/17/19 22:05: Lactic Acid, Venous 1.8 09/18/19 00:30: Creatinine 1.85 H 09/18/19 01:07: Urine Color Yellow, Urine Appearance Clear, Urine pH 5.5, Ur Specific Ethel 1.025, Urine Protein Negative, Urine Glucose (UA) Negative, Urine Ketones Negative, Urine Blood Negative, Urine Nitrate Negative, Urine Bilirubin Negative, Urine Urobilinogen Normal, Ur Leukocyte Esterase Negative, Urine RBC None seen, Urine WBC None seen, Ur Epithelial Cells None seen, Urine Bacteria None seen, Urine Culture Comments No culture indicated 09/19/19 06:10: WBC 11.2 H, RBC 3.78 L, Hgb 12.5 L, Hct 37.9 L, MCV 100.3 H, MCH 33.1 H, MCHC 33.0, RDW 14.8 H, Plt Count 140 L, MPV 9.3, Neutrophils % (Manual) 79 H, Band Neuts % (Manual) 3 H, Lymphocytes % (Manual) 5 L, Monocytes % (Manual) 5, Neutrophils # (Manual) 8.8 H, Lymphocytes # (Manual) 0.6 L, [place] cytes # (Manual) 0.6, Atypic/Reactive Lymphs 8 H, Platelet Estimate Normal, Anisocytosis 1+, Ovalocytes 1+ 09/19/19 06:10: Sodium 139, Plasma Sodium 139, Potassium 4.5, Chloride 104, Carbon Dioxide 30.6, Anion Gap 8.9, BUN 25 H D, Creatinine 1.21, Est GFR (Non-Af Amer) 64 D, BUN/Creatinine Ratio 20.7, Random Glucose 128 H, Calcium 8.6, Calcium Adj for Albumin 9.4, Total Bilirubin 0.6, AST 10, ALT 25, Alkaline Phosphatase 44 L, C-Reactive Prot, Quant 0.4, Total Protein 5.6 L, Albumin 2.6 L Discharge Location: Home Disposition: Home self-care Condition: Good Discharge Activity: Activity as tolerated Discharge Diet: General/regular food Referrals: Marcelo Becker MD [Primary Care Provider] - One Week Additional Patient Instructions (free text): -Please make TCM appointment unless fci discharge, or if following up with outside provider. Thank you! Zabrina @ [facility] 1307. Prescriptions (Any new or edited meds): Baclofen 10 mg PO TID #90 tab Transmission Status: Pending to [facility] #[id number] Dexamethasone [Decadron] 2 mg PO BID #60 tab Transmission Status: Pending to [facility] #[id number] Complete Home Medications List: Complete Home Medication List: Cholecalciferol (Vitamin D3) [Vitamin D3] 10,000 unit PO DAILY 10/04/16 acetaminophen 325 mg tablet 650 mg PO Q6H PRN tab 05/21/18 albuterol sulfate 1.25 mg IH QID PRN 05/21/18 irbesartan 300 mg tablet 300 mg PO DAILY #90 tab 12/11/18 doxazosin 8 mg tablet 8 mg PO HS #90 tab 03/11/19 hydrochlorothiazide 25 mg tablet 25 mg PO DAILY #30 tab 08/15/19 Acetaminophen [Tylenol] 1,300 mg PO DAILY 09/18/19 Acetaminophen/Diphenhydramine [Tylenol Pm Ex-Strength Caplet] 2 ea PO HS 09/18/19 Clonazepam 3 mg PO HS 09/18/19 Apixaban [Eliquis] 5 mg PO BID 09/19/19 Apixaban [Eliquis] 5 mg PO BID@0700,1900 tablet 09/19/19 Baclofen 10 mg PO TID #90 tab 09/19/19 Cefepime HCl in Dextrose 5 % [Cefepime-Dextrose 2 gm/50 ml] 2 gm IV Q24H 5 Days #5 piggyback 09/19/19 Dexamethasone [Decadron] 2 mg PO BID #60 tab 09/19/19 Gabapentin [Neurontin] 600 mg PO QID 09/19/19 Gabapentin [Neurontin] 600 mg PO QID tablet 09/19/19 Losartan Potassium [Cozaar] 100 mg PO DAILY tablet 09/19/19 Pantoprazole Sodium [Protonix] 40 mg PO DAILY 09/19/19 Vancomycin/0.9 % Sod Chloride [Vancomycin 1 G/100Ml-0.9% NaCl] 1 gm IV Q24H 5 Days plast..bag 09/19/19 clonazePAM [Klonopin] 3 mg PO HS tablet 09/19/19
[2019-09-19] MEDS ORDERED: VANCOMYCIN HCL 1 GM, VANCOMYCIN HCL 500 MG in DEXTROSE 5 % IN WATER 500 ML IV SCH ×3 (13:00)
[2019-09-19 17:48] VITALS: BP 148/95
== END 2019-09-19 18:10 | disposition home or self-care (01) ==
LOC: MS 17:14 → ER 17:14 → MS 09-18 01:00
PROVIDERS: ADMIT Family Medicine; ATTEND Family Medicine
DX: N17.9 Acute kidney failure, unspecified; M48.07 Spinal stenosis, lumbosacral region; G35 Multiple sclerosis; Z86.718 Personal history of other venous thrombosis and embolism; M48.00 Spinal stenosis, site unspecified; A41.9 Sepsis, unspecified organism; D64.9 Anemia, unspecified; R65.20 Severe sepsis without septic shock; L02.413 Cutaneous abscess of right upper limb; M54.5 Low back pain; L02.415 Cutaneous abscess of right lower limb; G80.9 Cerebral palsy, unspecified
CPT/HCPCS: 10160; 36415; 76882; 80053; 81001; 82565; 83605; 85025; 85379; 86140; 87040; 87070; 87081; 93971; 96361; 96365; 96366; 96367; 99285; G0378

== ENCOUNTER 2020-07-05 06:16 | Observation (INO) ==
[2020-07-05] MEDS ORDERED: NORMAL SALINE 1,000 ML IV ONE ×3 (06:28→09:50)
[2020-07-05] MEDS ORDERED: ONDANSETRON HCL/PF 2 MG/ML VIAL IV ONE ×2 (06:28→07:12)
--- NOTE | 2020-07-05 06:36 | ERNOTE ---
Abdominal HPI - Narrative Date of Service: 07/05/20 - General Time Seen by Provider: 07/05/20 06:18 Source: patient, family - Immun/Allergies/Home Medications Immunizatons: IMMUNIZATION HX Immunizations Up to Date No History of Influenza Vaccine Yes Hx Pneumococcal Vaccination Yes Allergies/Adverse Reactions: Allergies tetracycline [Tetracycline] Allergy (Severe, Verified 07/05/20 06:31) Unable to urinate sucralfate [From Carafate] Adverse Reaction (Verified 07/05/20 06:31) stomach troubles Home Medications: HOME MEDICATIONS Acetaminophen [Tylenol] 1,300 mg PO DAILY 09/18/19 [Last Taken Unknown] ROHO CUSHION 0 .ROUTE .MEDSUPPLY #1 ea 11/21/19 [Last Taken Unknown] albuterol sulfate 2.5 mg IH Q2H PRN 11/21/19 [Last Taken Unknown] albuterol sulfate 90 mcg/actuation aerosol inhaler 1 puff IH Q6H PRN #18 g 11/21/19 [Last Taken Unknown] budesonide 0.5 mg/2 mL suspension for nebulization 2 ml IH BID 11/21/19 [Last Taken Unknown] budesonide 90 mcg/actuation breath activated powder inhaler 1 inh IH BID #1 ea 11/21/19 [Last Taken Unknown] cholecalciferol (vitamin D3) 25 mcg (1,000 unit) capsule 1,000 unit PO BID 11/21/19 [Last Taken Unknown] hydralazine 25 mg tablet 25 mg PO QID PRN 11/21/19 [Last Taken Unknown] melatonin 3 mg tablet 3 mg PO HS PRN 11/21/19 [Last Taken Unknown] sennosides 8.6 mg-docusate sodium 50 mg tablet 1 tab PO BID PRN 11/21/19 [Last Taken Unknown] doxazosin 8 mg tablet 8 mg PO HS #90 tab 01/06/20 [Last Taken Unknown] hydrochlorothiazide 25 mg tablet 25 mg PO DAILY PRN #90 tab 01/06/20 [Last Taken Unknown] diltiazem HCl 120 mg capsule,extended release 12 hr 120 mg PO DAILY #90 cap 03/02/20 [Last Taken Unknown] pantoprazole 40 mg tablet,delayed release 40 mg PO DAILY #90 tab 05/04/20 [Last Taken Unknown] amlodipine 5 mg tablet 5 mg PO DAILY #90 tab 05/18/20 [Last Taken Unknown] apixaban 5 mg tablet 5 mg PO BID #180 tab 06/18/20 [Last Taken Unknown] baclofen 10 mg tablet 10 mg PO BID tab 07/01/20 [Last Taken Unknown] clonazepam 1 mg tablet 1 mg PO HS tab 07/01/20 [Last Taken Unknown] duloxetine 30 mg capsule,delayed release 30 mg PO DAILY #30 cap 07/01/20 [Last Taken Unknown] Gabapentin 600 mg PO TID 07/05/20 [Last Taken Unknown] - Pain Score Pain Score #1 Pain Score: 5 Abdominal Pain Onset Location: generalized abdomen Pain Radiation: no radiation - History of Present Illness Narrative: Patient is a 70-year-old male with a history of MS, cerebral palsy presenting with 3 days of nausea and vomiting. Symptoms started on . Initially, family thought that it may be related to him switching to generic Cymbalta, his also notes that they he ate at [employer] just prior to this. He is noted innumerable episodes of nausea and vomiting, also had some slight diarrhea. No blood in emesis or stools. Notes some aching and cramping abdominal pain that is mild to moderate. Denies feelings of lightheadedness, fevers, chills, cough or sore throat. Review of Systems - Review of Systems Constitutional: Present: no symptoms reported EYE: Absent: blurred vision, double vision ENT: Present: no symptoms reported Respiratory: Present: no symptoms reported Cardiology: Present: no symptoms reported Gastrointestinal/Abdominal: Present: nausea, vomiting, diarrhea, abdominal pain Genitourinary: Absent: frequency, dysuria Musculoskeletal: Present: no symptoms reported Skin: Present: no symptoms reported All Other Systems: All systems neg except as marked Medical History (Last Reviewed 07/01/20 @ 13:28 by Chrissy Flood RN) Low back pain radiating down leg (Chronic) Low back pain potentially associated with spinal stenosis (Chronic) DVT, lower extremity (Chronic) The ultrasound shows DVT from the mid femoral vein down through the popliteal vein. There is no clot proximally however where he is tender. I suspect that what he is having today is just phlebitis and that the DVT is old. He had an ultrasound from last July that showed DVT but it was not compared to this ultrasound by the radiologist. I have them do that on Monday. Allergic rhinitis Onset Date: ~09/04/14 Asthma Onset Date: Unknown Balance disorder Onset Date: ~05/26/16 Bilateral hand numbness Onset Date: ~11/21/15 Carpal tunnel syndrome Onset Date: ~11/28/11 Cerebral palsy Onset Date: Unknown Chronic renal failure Onset Date: ~08/08/13 Colitis, ulcerative Onset Date: Unknown DVT (deep venous thrombosis) Onset Date: ~07/12/17 02/12/17, 07/12/17, 08/02/17 Depression Onset Date: Unknown Erectile dysfunction Onset Date: ~08/27/12 Hepatitis Onset Date: Unknown Hiatal hernia Onset Date: Unknown Hypertension Onset Date: ~08/08/13 Insomnia Onset Date: Unknown Iron deficiency anemia Onset Date: ~12/16/16 Kidney stone Onset Date: Unknown Left foot pain Onset Date: ~09/06/15 Low back pain Onset Date: ~07/22/15 Pinworms Onset Date: ~11/09/15 Shoulder dislocation Onset Date: ~02/04/13 Spinal stenosis Onset Date: Unknown Surgical History: Surgical History (Last Reviewed 07/01/20 @ 13:28 by Chrissy Flood RN) Fractured nose Onset Date: ~1976 repaired H/O repair of rotator cuff Onset Date: ~1999 left History of cystoscopy Onset Date: ~2014 2014, 02/02/17 History of lithotripsy Onset Date: ~07/29/15 Hx of cholecystectomy Onset Date: ~03/11/08 Hx of dilation of urethra Onset Date: Unknown Hx of knee surgery Onset Date: ~1979 left Lipoma of back Onset Date: Unknown removal S/P epidural steroid injection Onset Date: ~03/21/12 Family History: Family History (Last Reviewed 07/01/20 @ 13:28 by Chrissy Flood RN) Brother Heart disease Brother Cancer bladder Celiac disease Heart disease Diabetes Kidney failure Mother Diabetes Depression Heart disease Hypertension CVA (cerebral vascular accident) Father Heart disease Myocardial infarction Parkinson disease Social History: (Last Reviewed 07/01/20 @ 13:28 by Chrissy Flood RN) Social History: Marital status: current occupational status: retired Service: No Tobacco: Smoking Status: Former smoker Alcohol: alcohol intake: current Substance Use: substance use type: does not use Dietary Habits: caffeine: Yes Physical Exam - Physical Exam General Appearance: Present: other - Sitting upright in chair, speaks in full sentences, baseline intermittent spasms. In no apparent distress. Intermittently retching. Head Exam: Present: other - Normocephalic, atraumatic Eye Exam: PERRL: bilateral Ears, Nose, Throat: Present: dry mucous membranes Neck: Present: supple Respiratory: Present: no respiratory distress, normal breath sounds, no accessory muscle use, lungs clear Cardiovascular/Chest: Present: no murmur, normal peripheral pulses, tachycardia Peripheral Pulses: N=norm/S=strong/W=weak/B=bound/A=absent: Radial (R): Normal, Radial (L): Normal Gastrointestinal/Abdominal: Present: normal bowel sounds, nontender, nondistended, soft Back Exam: Present: normal range of motion Extremity Exam: Present: normal inspection Neurological Exam: Present: alert, oriented, no motor/sensory deficits Skin Exam: Present: normal color, warm/dry Progress - Results and Orders Patient's Lab Results:: I have reviewed the patient's lab results. - Vital Signs Patient's Vital Signs:: I have reviewed the patient's vital signs. - CT/Ultrasound CT/Ultrasound Narrative: CT of the abdomen pelvis with contrast: 3 noncalcified hypodense round structures within the liver favoring cyst. Mild hepatic steatosis, bilateral renal cysts, prostatic enlargement, several bladder diverticuli, aorta is normal in caliber. Superior mesenteric artery patent. No portal venous thrombosis. Moderate sliding hiatal hernia noted. Normal small bowel and appendix. Left colonic diverticulosis without diverticulitis. No free intraperitoneal air Plan - Plan Plan: Patient is a 70-year-old male presenting with 3 to 4 days of nausea and vomiting, slight diarrhea. Differential diagnosis includes gastroenteritis versus infectious colitis, less likely bowel obstruction given that patient is passing gas and having bowel movements. No pain out of proportion to exam to suggest ischemic colitis. IV access obtained, patient given 1 L normal saline, Zofran and labs obtained. Given no focal abdominal tenderness will defer imagin g at this point. Labs reviewed without any evidence of leukocytosis. Lipase, renal function, and LFTs are normal. After IV fluids and Zofran patient does report feeling improved. Lactic acid returned elevated at 3.2. Will proceed with CT of the abdomen pelvis with contrast to evaluate for any abnormalities. When I went back in to notify the patient he reports that his nausea is quickly returning and having increasing aching abdominal pain as well. We will give a second dose of Zofran. Not much improvement with second dose. Patient given a second liter of NS. CT images personally reviewed. No evidence of any acute intra-abdominal findings, no evidence of infectious abnormalities, obstructive pathology. Patient still feeling very nauseated, discussed case with Dr. Noguera. Stool culture and ova parasites ordered. Will admit for observation for hydration and supportive care. Departure Clinical Impression: Intractable nausea and vomiting - Departure Disposition: Still a patient Condition: Serious Referrals: Damir Choe DO [Primary Care Provider] -
[2020-07-05 06:43] LABS: Hematocrit 46.8 % (42.0-52.0); Hemoglobin 15.5 gm/dL (13.5-18.0); Mean Cell Volume 90.9 fl (78-100); Mean Corpuscular Hemoglobin 30.1 pg (27-31); Mean Corpuscular Hgb Conc 33.1 g/dl (32-36); Mean Platelet Volume 9.3 fl (8-11.3); Neutrophil # 5.5 K/mm3 (1.3-6.0); Neutrophil % 68.6 % (42-75.0); Platelet Count 226 K/mm3 (150-450); Red Blood Count 5.15 M/mm3 (4.7-6.0); Red Cell Distribution Width 13.5 % (11.5-14.0)
[2020-07-05 06:57] LABS: Albumin * 3.8 gm/dl (3.4-5.0); Anion Gap 14.3 mmol/L (6.8-13.8); BUN/Creatinine Ratio 11.7 (9.0-21.6); Bilirubin, Total 1.7 mg/dL (0.0-1.1); Ca. Corrected For Albumin 10.1 mg/dL (8.4-10.2); Calcium * 10.3 mg/dL (7.9-10.9); Potassium 3.3 mmol/L (3.4-4.6); Total Protein 7.9 gm/dL (6.2-8.2)
[2020-07-05] MEDS ORDERED: POTASSIUM CHLORIDE 20 MEQ TABLET.SA PO ONE (09:49)
[2020-07-05] MEDS ORDERED: ACETAMINOPHEN 325 MG TABLET PO PRN (09:51)
[2020-07-05] MEDS ORDERED: BUDESONIDE inhalation PRN (09:53)
[2020-07-05] MEDS ORDERED: NON-FORMULARY 1 DOSE DOSE (Albuterol Sulfate 2.5 MG) IH PRN (09:53)
[2020-07-05] MEDS ORDERED: ALBUTEROL SULFATE 200 PUFF INHALER IH PRN (09:53)
[2020-07-05] MEDS ORDERED: BUDESONIDE 0.5 MG/2 ML VIAL.NEB IH PRN (09:53)
[2020-07-05] MEDS ORDERED: hydrALAZINE HCL 25 MG TABLET PO PRN (09:53)
[2020-07-05] MEDS ORDERED: MELATONIN 3,000 MCG TABLET PO PRN (09:53)
[2020-07-05] MEDS ORDERED: PANTOPRAZOLE SODIUM 40 MG TABLET.EC PO SCH (10:00)
[2020-07-05] MEDS ORDERED: ONDANSETRON HCL/PF 2 MG/ML VIAL IV PRN (10:12)
[2020-07-05] MEDS ORDERED: ALBUTEROL SULFATE 2.5 MG/0.5 ML VIAL.NEB IH PRN (10:15)
--- NOTE | 2020-07-05 10:29 | HP ---
Chief Complaint - Chief Complaint Date of Service: 07/05/20 Time of Service: 10:13 Chief Complaint: I have nausea and vomiting and bloody diarrhea for several days. History of Present Illness: 70-year-old male with past medical history of multiple sclerosis, hypertension, cerebral palsy, depression, and erectile dysfunction was evaluated in the ER for ongoing nausea and vomiting that started last . The patient is accompanied by his who relates that they went to eat at [employer] restaurant on Monday and had several burgers and several hours later the patient developed intense nausea and shortly after nonbloody vomiting. He denied abdominal pain or bloating but said that he stomach felt queasy and uneasy. The patient eventually developed nonbloody diarrhea and had several watery stools that started on Monday. As a result of the nausea and the vomiting the patient has not been able to keep down his routine medications, fluids, nor solids. He has grown extremely weak and is unable to carry out his activities of daily living. He denies fever chills. According to the patient he is never had these symptoms before nor does he have any history of GI issues. Medical History (Last Reviewed 07/05/20 @ 09:35 by Mayela Villar RN) Low back pain radiating down leg (Chronic) Low back pain potentially associated with spinal stenosis (Chronic) DVT, lower extremity (Chronic) The ultrasound shows DVT from the mid femoral vein down through the popliteal vein. There is no clot proximally however where he is tender. I suspect that what he is having today is just phlebitis and that the DVT is old. He had an ultrasound from last July that showed DVT but it was not compared to this ultrasound by the radiologist. I have them do that on Monday. Allergic rhinitis Onset Date: ~09/04/14 Asthma Onset Date: Unknown Balance disorder Onset Date: ~05/26/16 Bilateral hand numbness Onset Date: ~11/21/15 Carpal tunnel syndrome Onset Date: ~11/28/11 Cerebral palsy Onset Date: Unknown Chronic renal failure Onset Date: ~08/08/13 Colitis, ulcerative Onset Date: Unknown DVT (deep venous thrombosis) Onset Date: ~07/12/17 02/12/17, 07/12/17, 08/02/17 Depression Onset Date: Unknown Erectile dysfunction Onset Date: ~08/27/12 Hepatitis Onset Date: Unknown Hiatal hernia Onset Date: Unknown Hypertension Onset Date: ~08/08/13 Insomnia Onset Date: Unknown Iron deficiency anemia Onset Date: ~12/16/16 Kidney stone Onset Date: Unknown Left foot pain Onset Date: ~09/06/15 Low back pain Onset Date: ~07/22/15 Pinworms Onset Date: ~11/09/15 Shoulder dislocation Onset Date: ~02/04/13 Spinal stenosis Onset Date: Unknown Surgical History: Surgical History (Last Reviewed 07/05/20 @ 09:35 by Mayela Villar RN) Fractured nose Onset Date: ~1976 repaired H/O repair of rotator cuff Onset Date: ~1999 left History of cystoscopy Onset Date: ~2014 2014, 02/02/17 History of lithotripsy Onset Date: ~07/29/15 Hx of cholecystectomy Onset Date: ~03/11/08 Hx of dilation of urethra Onset Date: Unknown Hx of knee surgery Onset Date: ~1979 left Lipoma of back Onset Date: Unknown removal S/P epidural steroid injection Onset Date: ~03/21/12 Family History: Family History (Last Reviewed 07/05/20 @ 09:35 by Mayela Villar RN) Brother Heart disease Brother Cancer bladder Celiac disease Heart disease Diabetes Kidney failure Mother Diabetes Depression Heart disease Hypertension CVA (cerebral vascular accident) Father Heart disease Myocardial infarction Parkinson disease Social History: (Last Reviewed 07/05/20 @ 09:35 by Mayela Villar RN) Social History: Marital status: current occupational status: retired Service: No Tobacco: Smoking Status: Former smoker Alcohol: alcohol intake: current Substance Use: substance use type: does not use Dietary Habits: caffeine: Yes Peds Patient Hx - Developmental: Cerebral Palsy Peds Patient Hx - Medical: No Pertinent Hx Peds Patient Hx - Cardiac/Respiratory: No Pertinent Hx Peds Patient Hx - Surgical: No Surgical History Patient History - Cancer: No Hx of Cancer Review Of Systems (GEN) - Review of Systems Generalized/Overall Review: Present: Weakness, Fatigue EENTM: Present: No Symptoms Reported Respiratory: Present: No Symptoms Reported Cardiac: Present: No Symptoms Reported Abdominal: Present: Nausea, Vomiting, Diarrhea Genitourinary: Present: No Symptoms Reported Musculoskeletal: Present: No Symptoms Reported Neurological: Present: No Symptoms Reported Skin: Present: No Symptoms Reported Endocrine: Present: No Symptoms Reported Immunizations: IMMUNIZATION HX Immunizations Up to Date No History of Influenza Vaccine Yes Hx Pneumococcal Vaccination Yes Allergies/Adverse Reactions: Allergies Allergy/AdvReac Type Severity Reaction Status Date / Time tetracycline [Tetracycline] Allergy Severe Unable to Verified 07/05/20 06:31 urinate sucralfate [From Carafate] AdvReac stomach Verified 07/05/20 06:31 troubles Home Medications: HOME MEDICATIONS Acetaminophen [Tylenol] 975 mg PO TID 09/18/19 [Last Taken Unknown] [place] 0 .ROUTE .MEDSUPPLY #1 ea 11/21/19 [Last Taken Unknown] albuterol sulfate 2.5 mg IH Q2H PRN 11/21/19 [Last Taken Unknown] albuterol sulfate 90 mcg/actuation aerosol inhaler 1 puff IH Q6H PRN #18 g 11/21/19 [Last Taken Unknown] budesonide 0.5 mg/2 mL suspension for nebulization 2 ml IH BID PRN 11/21/19 [Last Taken Unknown] cholecalciferol (vitamin D3) 25 mcg (1,000 unit) capsule 1,000 unit PO BID 11/21/19 [Last Taken Unknown] hydralazine 25 mg tablet 25 mg PO QID PRN 11/21/19 [Last Taken Unknown] melatonin 3 mg tablet 5 mg PO HS PRN 11/21/19 [Last Taken Unknown] sennosides 8.6 mg-docusate sodium 50 mg tablet 1 tab PO QID PRN 11/21/19 [Last Taken Unknown] doxazosin 8 mg tablet 8 mg PO HS #90 tab 01/06/20 [Last Taken Unknown] diltiazem HCl 120 mg capsule,extended release 12 hr 120 mg PO DAILY #90 cap 03/02/20 [Last Taken Unknown] pantoprazole 40 mg tablet,delayed release 40 mg PO DAILY #90 tab 05/04/20 [Last Taken Unknown] amlodipine 5 mg tablet 5 mg PO DAILY #90 tab 05/18/20 [Last Taken Unknown] apixaban 5 mg tablet 5 mg PO BID #180 tab 06/18/20 [Last Taken Unknown] baclofen 10 mg tablet 10 mg PO BID tab 07/01/20 [Last Taken Unknown] clonazepam 1 mg tablet 1 mg PO HS tab 07/01/20 [Last Taken Unknown] Budesonide [Pulmicort Flexhaler] 1 inh INHALATION BID PRN 07/05/20 [Last Taken Unknown] Gabapentin 300 mg PO BID 07/05/20 [Last Taken Unknown] Hydrochlorothiazide [Hydrodiuril] 25 mg PO DAILY 07/05/20 [Last Taken Unknown] Exam - Exam Vital Signs: Vital Signs - Last Taken Temp 36.7 C 07/05/20 09:24 Pulse 100 07/05/20 09:24 Resp 18 07/05/20 09:24 BP 138/96 H 07/05/20 09:24 Pulse Ox 93 07/05/20 09:24 Constitutional: Present: Alert, Oriented x3, Cooperative, Well developed, Well nourished, No distress, Obese ENT Exam: Present: normal ENT inspection, hearing grossly normal, pharynx normal, TMs normal Eye Exam: bilateral eye: normal inspection, PERRL, EOMI Neck: Present: non-tender, full range of motion, supple, normal inspection, trachea midline Back Exam: Present: normal inspection, no CVA tenderness, no vertebral tenderness Breasts: Present: Exam deferred, Nontender Respiratory: Present: chest non-tender, lungs clear, normal breath sounds, no respiratory distress, no accessory muscle use Cardiovascular/Chest: Present: normal peripheral pulses, regular rate, rhythm, no chest tenderness, no edema, no gallop, no JVD, no murmur, no rub Peripheral Pulses: carotid (R): 3+, carotid (L): 3+, femoral (R): 3+, femoral (L): 3+, dorsalis-pedis (R): 3+, dorsalis-pedis (L): 3+ Abdomen: Present: Normal bowel sounds, soft, nontender, nondistended, no rebound tenderness, no hepatospenomegaly, no masses /Rectal: Present: Exam deferred Extremity: Present: normal range of motion, non-tender, normal inspection, no pedal edema, no calf tenderness, normal capillary refill, pelvis stable Skin Exam: Present: normal color, warm/dry, no cyanosis Lymphatic: Present: no adenopathy Neurologic: Present: alert, normal mood/affect, oriented x 3, abnormal gait, sensory deficit Appearance: Present: appropriate appearance, appropriate insight, neat, no memory impairment Eye contact: Present: cooperative, good eye contact, normal speech Thoughts: Present: normal thought pattern, no apparent hallucination Diagnostic Studies: Abnormal Lab Results 07/05/20 07/05/20 07/05/20 Range/Units 06:40 06:40 06:40 Lymphocytes % 19.9 L (20-51) % Monocytes % 10.3 H (0.0-9) % Potassium 3.3 L (3.4-4.6) mmol/L Anion Gap 14.3 H (6.8-13.8) mmol/L Lactic Acid, Venous 3.2 H* (0.4-2.0) mmol/L Total Bilirubin 1.7 H (0.0-1.1) mg/dL Laboratory Results WBC 8.0 K/mm3 (4.0-10.5) 07/05/20 06:40 RBC 5.15 M/mm3 (4.7-6.0) 07/05/20 06:40 Hgb 15.5 gm/dL (13.5-18.0) 07/05/20 06:40 Hct 46.8 % (42.0-52.0) 07/05/20 06:40 MCV 90.9 fl (78-100) 07/05/20 06:40 MCH 30.1 pg (27-31) 07/05/20 06:40 MCHC 33.1 g/dl (32-36) 07/05/20 06:40 RDW 13.5 % (11.5-14.0) 07/05/20 06:40 Plt Count 226 K/mm3 (150-450) 07/05/20 06:40 MPV 9.3 fl (8-11.3) 07/05/20 06:40 Immature Gran % (Auto) 0.30 % (0.001-0.429) 07/05/20 06:40 Immature Gran # (Auto) 0.02 K/mm3 (0.000-0.0310) 07/05/20 06:40 Neutrophils % 68.6 % (42-75.0) 07/05/20 06:40 Lymphocytes % 19.9 % (20-51) L 07/05/20 06:40 Monocytes % 10.3 % (0.0-9) H 07/05/20 06:40 Eosinophils % 0.5 % (0.0-3.0) 07/05/20 06:40 Basophils % 0.4 % (0.0-1.0) 07/05/20 06:40 Nucleated RBC % 0.0 k/mm3 (0-1) 07/05/20 06:40 Neutrophils # 5.5 K/mm3 (1.3-6.0) 07/05/20 06:40 Lymphocytes # 1.59 k/mm3 (1.5-3.5) 07/05/20 06:40 Monocytes # 0.8 k/mm3 (0.0-1.0) 07/05/20 06:40 Eosinophils # 0.0 k/mm3 (0.0-0.7) 07/05/20 06:40 Absolute Basophils 0.0 k/mm3 (0.0-0.1) 07/05/20 06:40 Sodium 139 mmol/L (132-142) 07/05/20 06:40 Plasma Sodium 139 mmol/L (130-142) 07/05/20 06:40 Potassium 3.3 mmol/L (3.4-4.6) L 07/05/20 06:40 Chloride 99 mmol/L (97-106) 07/05/20 06:40 Carbon Dioxide 29.0 mmol/L (24-32.6) 07/05/20 06:40 Anion Gap 14.3 mmol/L (6.8-13.8) H 07/05/20 06:40 BUN 14 mg/dL (6-23) 07/05/20 06:40 Creatinine 1.20 mg/dL (0.4-1.4) 07/05/20 06:40 Est GFR (Non-Af Amer) 64 mL/min (60-130) 07/05/20 06:40 BUN/Creatinine Ratio 11.7 (9.0-21.6) 07/05/20 06:40 Random Glucose 100 mg/dL (70-110) 07/05/20 06:40 Lactic Acid, Venous 1.5 mmol/L (0.4-2.0) 07/05/20 09:35 Calcium 10.3 mg/dL (7.9-10.9) 07/05/20 06:40 Calcium Adj for Albumin 10.1 mg/dL (8.4-10.2) 07/05/20 06:40 Total Bilirubin 1.7 mg/dL (0.0-1.1) H 07/05/20 06:40 AST 20 U/L (0-48) 07/05/20 06:40 ALT 21 U/L (19-67) 07/05/20 06:40 Alkaline Phosphatase 84 U/L (50-170) 07/05/20 06:40 Total Protein 7.9 gm/dL (6.2-8.2) 07/05/20 06:40 Albumin 3.8 gm/dl (3.4-5.0) 07/05/20 06:40 Lipase 96 U/L (73-393) 07/05/20 06:40 Assessment/Plan - Narrative Narrative: Patient was evaluated medical chart was reviewed and decision to admit for diagnosis of intractable nausea and vomiting, dehydration, and acute gastroenteritis was made. Patient appears weak and was found to have other signs and symptoms of dehydration, he will need IV hydration to replenish his fluids. He also has ongoing nausea and vomiting that is intractable to p.o. meds therefore we will keep him overnight to manage him with IV antiemetics. Patient has been unable to take his routine medications due to his symptoms so we will attempt to get his nausea and vomiting under control so that he is able to resume his routine medications. Currently he complains of sacral burning pain which is not new to the patient and most likely is due to him being without his usual Roho pillow. His was instructed to bring the pillow and tomorrow when she comes visit but in the meantime we will put extra padding and cushioning under the patient's gluteal region in order to alleviate his pain and discomfort. Labs on admission revealed hypokalemia most likely secondary to the vomiting therefore he will be treated with a potassium supplement and we will repeat labs in the morning. Imaging of the patient's abdomen was negative for any acute findings but he was incidentally found to have multiple cysts on his liver and on his kidneys, he also has mild steatohepatitis. I will leave this to his PCP to discuss with him. - Assessment/Plan (1) Acute gastroenteritis Problem: Acute (2) Intractable nausea and vomiting Problem: Acute (3) Dehydration Problem: Acute (4) Food poisoning Problem: Acute (5) Hypokalemia due to excessive gastrointestinal loss of potassium Problem: Acute (6) Multiple sclerosis Problem: Chronic (7) Cerebral palsy Problem: Chronic Qualifiers: (8) Hypertension Problem: Chronic Qualifiers:
[2020-07-05] MEDS ORDERED: [UNRECOGNIZED DRUG - OTHER] SCH (10:30)
[2020-07-05] MEDS: PANTOPRAZOLE SODIUM 40 MG in NORMAL SALINE 100 ML IV SCH ×2 (10:45→22:11)
[2020-07-05 10:46] LABS: Urine Appearance Clear (CLEAR); Urine Bilirubin Negative (NEGATIVE); Urine Blood Negative /ul (NEGATIVE); Urine Color Yellow; Urine Ketone Negative (NEGATIVE)
[2020-07-05 10:47] LABS: Urine Nitrite Negative (NEGATIVE); Urine Protein Negative (NEGATIVE); Urine Urobilinogen Normal (NORMAL); Urine pH 6.5 pH (5.0-7.0)
[2020-07-05 10:48] LABS: Urine Bacteria None Seen; Urine RBC None Seen /hpf (0-5); Urine WBC 0-5 /hpf (0-5)
[2020-07-05] MEDS: BACLOFEN 10 MG TABLET PO SCH ×2 (10:49→20:43)
[2020-07-05] MEDS: APIXABAN 5 MG TABLET PO SCH ×2 (10:50→20:44)
[2020-07-05] MEDS: amLODIPine BESYLATE 5 MG TABLET PO SCH (10:50)
[2020-07-05] MEDS: GABAPENTIN 300 MG CAPSULE PO SCH ×2 (10:50→20:44)
[2020-07-05] MEDS: HYDROCHLOROTHIAZIDE 25 MG TABLET PO SCH (10:50)
[2020-07-05] MEDS: CHOLECALCIFEROL 1,000 UNIT CAPSULE PO SCH ×2 (10:53→20:45)
[2020-07-05] MEDS: DILTIAZEM HCL 120 MG CAP.SR.24H PO SCH (10:56)
[2020-07-05] MEDS ORDERED: ACETAMINOPHEN PO SCH (13:00)
[2020-07-05] MEDS ORDERED: clonazePAM 1 MG TABLET PO SCH (21:00)
[2020-07-05] MEDS ORDERED: DOXAZOSIN MESYLATE 2 MG TABLET PO SCH (21:00)
[2020-07-06 06:44] LABS: Albumin * 3.1 gm/dl (3.4-5.0); Anion Gap 10.6 mmol/L (6.8-13.8); BUN/Creatinine Ratio 10.8 (9.0-21.6); Bilirubin, Total 1.6 mg/dL (0.0-1.1); Ca. Corrected For Albumin 9.6 mg/dL (8.4-10.2); Calcium * 9.2 mg/dL (7.9-10.9); Carbon Dioxide 30.7 mmol/L (24-32.6); Potassium 3.3 mmol/L (3.4-4.6); Total Protein 6.5 gm/dL (6.2-8.2)
[2020-07-06] MEDS: BACLOFEN 10 MG TABLET PO SCH (09:25)
[2020-07-06] MEDS: amLODIPine BESYLATE 5 MG TABLET PO SCH (09:25)
[2020-07-06] MEDS: HYDROCHLOROTHIAZIDE 25 MG TABLET PO SCH (09:25)
[2020-07-06] MEDS: CHOLECALCIFEROL 1,000 UNIT CAPSULE PO SCH (09:25)
[2020-07-06] MEDS: GABAPENTIN 300 MG CAPSULE PO SCH (09:25)
[2020-07-06] MEDS: DILTIAZEM HCL 120 MG CAP.SR.24H PO SCH (09:25)
[2020-07-06] MEDS: APIXABAN 5 MG TABLET PO SCH (09:30)
[2020-07-06] MEDS: PANTOPRAZOLE SODIUM 40 MG in NORMAL SALINE 100 ML IV SCH (10:53)
--- NOTE | 2020-07-06 12:37 | DS ---
Date of Discharge:: 07/06/20 Hospital Course: Nathan is a pleasant 70-year-old male with cerebral palsy who was admitted over the weekend for intractable nausea vomiting secondary to acute gastroenteritis. Patient states that likely was from a burger he ate a day or 2 prior to admission. Vivian awful and got worse on Monday came in on Monday. Initial presentation in the ER showed him to have a normal white count, and elevated lactic acid of 3.6 which trended down to normal with repeat, and mildly hypokalemia. Today his potassium is unchanged at 3.3 but otherwise his labs have been within normal limits. Advised patient to eat potassium rich foods including bananas which he agrees to do. Patient's vital signs been stable otherwise. Patient has tolerated p.o. intake without recurrent nausea/vomiting/diarrhea. Of note patient was started on Cymbalta Monday prior to his symptoms starting which may have partially because some of his GI upset though I do not think it would have causes nausea or diarrhea. Advised patient to stop this medicine which he has done. will start him on another neuropathic medicine from the clinic side. Patient will follow with me in 2 weeks, he will call questions or concerns. Otherwise no other changes to his medicines. While here his vital signs been stable and he has been afebrile. Patient ready go home, very pleasant today. Procedures Performed: none Results and Findings: Pending Mircobiology Results 07/05/20 12:30 Stool Stool Culture - Preliminary No Pathogens Isolated Lab Pending Results 07/05/20 06:40: WBC 8.0, RBC 5.15, Hgb 15.5, Hct 46.8, MCV 90.9, MCH 30.1, MCHC 33.1, RDW 13.5, Plt Count 226, MPV 9.3, Immature Gran % (Auto) 0.30, Immature Gran # (Auto) 0.02, Neutrophils % 68.6, Lymphocytes % 19.9 L, Monocytes % 10.3 H, Eosinophils % 0.5, Basophils % 0.4, Nucleated RBC % 0.0, Neutrophils # 5.5, Lymphocytes # 1.59, Monocytes # 0.8, Eosinophils # 0.0, Absolute Basophils 0.0 07/05/20 06:40: Sodium 139, Plasma Sodium 139, Potassium 3.3 L, Chloride 99, Carbon Dioxide 29.0, Anion Gap 14.3 H, BUN 14, Creatinine 1.20, Est GFR (Non-Af Amer) 64, BUN/Creatinine Ratio 11.7, Random Glucose 100, Calcium 10.3, Calcium Adj for Albumin 10.1, Total Bilirubin 1.7 H, AST 20, ALT 21, Alkaline Phosphatase 84, Total Protein 7.9, Albumin 3.8, Lipase 96 07/05/20 06:40: Lactic Acid, Venous 3.2 H* 07/05/20 09:35: Lactic Acid, Venous 1.5 07/05/20 10:37: Urine Color Yellow, Urine Appearance Clear, Urine pH 6.5, Ur Specific [place] 1.010, Urine Protein Negative, Urine Glucose (UA) Negative, Urine Ketones Negative, Urine Blood Negative, Urine Nitrate Negative, Urine Bilirubin Negative, Urine Urobilinogen Normal, Ur Leukocyte Esterase Negative, Urine RBC None seen, Urine WBC 0-5, Ur Epithelial Cells 0-5, Urine Bacteria None seen, Urine Culture Comments No culture indicated 07/06/20 06:20: Sodium 141, Plasma Sodium 141, Potassium 3.3 L, Chloride 103, Carbon Dioxide 30.7, Anion Gap 10.6, BUN 12, Creatinine 1.11, Est GFR (Non-Af Amer) 70, BUN/Creatinine Ratio 10.8, Random Glucose 70, Calcium 9.2, Calcium Adj for Albumin 9.6, Total Bilirubin 1.6 H, AST 22, ALT 20, Alkaline Phosphatase 68, Total Protein 6.5, Albumin 3.1 L Discharge Location: Home Disposition: Home self-care Condition: Stable Discharge Activity: Activity as tolerated Discharge Diet: General/regular food - start with bland diet and slowly increase richness/consistency Referrals: Damir Choe DO [Primary Care Provider] - Two Weeks Complete Home Medications List: Complete Home Medication List: Acetaminophen [Tylenol] 975 mg PO TID 09/18/19 ROHO CUSH[place] 0 .ROUTE .MEDSUPPLY #1 ea 11/21/19 albuterol sulfate 2.5 mg IH Q2H PRN 11/21/19 albuterol sulfate 90 mcg/actuation aerosol inhaler 1 puff IH Q6H PRN #18 g 11/21/19 budesonide 0.5 mg/2 mL suspension for nebulization 2 ml IH BID PRN 11/21/19 cholecalciferol (vitamin D3) 25 mcg (1,000 unit) capsule 1,000 unit PO BID 11/21/19 hydralazine 25 mg tablet 25 mg PO QID PRN 11/21/19 melatonin 3 mg tablet 5 mg PO HS PRN 11/21/19 sennosides 8.6 mg-docusate sodium 50 mg tablet 1 tab PO QID PRN 11/21/19 doxazosin 8 mg tablet 8 mg PO HS #90 tab 01/06/20 diltiazem HCl 120 mg capsule,extended release 12 hr 120 mg PO DAILY #90 cap 03/02/20 pantoprazole 40 mg tablet,delayed release 40 mg PO DAILY #90 tab 05/04/20 amlodipine 5 mg tablet 5 mg PO DAILY #90 tab 05/18/20 apixaban 5 mg tablet 5 mg PO BID #180 tab 06/18/20 baclofen 10 mg tablet 10 mg PO BID tab 07/01/20 clonazepam 1 mg tablet 1 mg PO HS tab 07/01/20 Budesonide [Pulmicort Flexhaler] 1 inh INHALATION BID PRN 07/05/20 Gabapentin 300 mg PO BID 07/05/20 Hydrochlorothiazide [Hydrodiuril] 25 mg PO DAILY 07/05/20
[2020-07-06 15:21] VITALS: BP 148/78
== END 2020-07-06 15:00 | disposition home or self-care (01) ==
LOC: MS 06:16 → ER 06:16 → MS 09:26
PROVIDERS: ADMIT Family Medicine; ATTEND Family Medicine
DX: A05.9 Bacterial foodborne intoxication, unspecified; G35 Multiple sclerosis; G80.9 Cerebral palsy, unspecified; I10 Essential (primary) hypertension; E87.6 Hypokalemia; Z86.718 Personal history of other venous thrombosis and embolism; E86.0 Dehydration
CPT/HCPCS: 36415; 74177; 80053; 81001; 83605; 83690; 85025; 87045; 87046; 87177; 87209; 96361; 96365; 96366; 96375; 96376; 99284; 99285; G0378; J2405; Q9967